=== PATIENT | female | born 1940 | race Caucasian/White ===

== ENCOUNTER 2016-09-18 05:54 | Inpatient (IN) | payer OTHER ==
[2016-09-18] MEDS ORDERED: DEXAMETHASONE SOD PHOSPHATE/PF 10 MG/ML SDV ONE (06:52)
[2016-09-18] MEDS ORDERED: MIDAZOLAM HCL 2 MG/2 ML SINGLE DOSE VIAL ONE ×2 (06:52→12:27)
[2016-09-18] MEDS ORDERED: ROPIVACAINE HCL 0.5% 30ML VIAL ONE (06:52)
[2016-09-18 06:55] VITALS: BMI 36.1
[2016-09-18] MEDS ORDERED: oxyCODONE HCL 10 MG SUSTAINED ACTING TABLET ONE (07:02)
[2016-09-18] MEDS ORDERED: CELECOXIB 200 MG CAPSULE ONE (07:02)
[2016-09-18] MEDS ORDERED: GABAPENTIN 300 MG CAPSULE (FP) ONE (07:02)
[2016-09-18] MEDS: GABAPENTIN 300 MG CAPSULE (FP) PO ONE ×2 (07:05→17:12)
[2016-09-18] MEDS: oxyCODONE HCL 10 MG SUSTAINED ACTING TABLET PO ONE ×2 (07:05→17:11)
[2016-09-18] MEDS: CELECOXIB 200 MG CAPSULE PO ONE ×2 (07:05→17:12)
[2016-09-18] MEDS ORDERED: TRANEXAMIC ACID 1000 MG/10 ML VIAL IVPUSH ONE ×2 (07:11→13:09)
[2016-09-18] MEDS ORDERED: CEFAZOLIN 2 GM in DEXTROSE 5%-WATER - 50 ML IVPB ONE (07:11)
[2016-09-18] MEDS ORDERED: ROPIVICAINE 0.2%/MORPH PF/KETOROLAC - 51ML DISP.SYRINGE IA ONE ×2 (07:11→13:09)
[2016-09-18] MEDS: PANTOPRAZOLE 40 MG TABLET (FP) PO ONE ×2 (07:15→17:12)
--- NOTE | 2016-09-18 07:47 | HP ---
Admitting History and Physical - Admission Chief Complaint: right hip osteoarthritis x years History of Present Illness: 76 year old female presents in regard to her right hip. Longstanding history of right hip osteoarthritis. Patient complains of pain, difficulty ambulating and limited ROM. Patient has failed conservative treatment including PO medication, activity modification and exercise program. At this point, patient would like to proceed with a right direct anterior total hip arthroplasty (MAKOplasty). - Past Medical History FOOD PACKER: Yes: Other (Meningitis age 19) Cardiovascular: Yes: HTN, Hyperlipdemia Pulmonary: Yes: Asthma Gastrointestinal: Yes: Diverticulosis, GERD, GI Bleed, Other (colon polyps, hiatal hernia with GERD) Hepatobiliary: Yes: Choledocholithiasis Renal/: Yes: Renal Calculi ([facility] in 2014) Heme/Onc: Yes: Anemia Musculoskeletal: Yes: Osteoarthritis (hip inhections 2014), Other (right hip steroid injection 2014) ENT: Yes: Allergic Rhinitis Endocrine: Yes: Diabetes Mellitus, Hyperparathyroidism, Hyperthyroidism, Hypothyroidism, Other (Thyroid nodule, Parathyroidectomy 07/13) - Past Surgical History Past Surgical History: Yes: Appendectomy, Cholecystectomy, Colonoscopy, Hysterectomy, Oopherectomy, Upper Endoscopy (Parathyroidectomy 07/13) Additional Past Surgical History: See written H&P - Smoking History Smoking history: Former smoker Have you smoked in the past 12 months: No Aproximately how many cigarettes per day: 0 If you are a former smoker, when did you quit?: 1983 - Alcohol/Substance Use Hx Alcohol Use: Yes Number of Drinks Daily: 0 (holidays only) - Social History ADL: Independent Occupation: retired History of Recent Travel: No Home Medications - Allergies Allergies/Adverse Reactions: Allergies Allergy/AdvReac Type Severity Reaction Status Date / Time No Known Drug Allergies Allergy Verified 08/31/15 17:38 - Home Medications Home Medications: Ambulatory Orders Atorvastatin Ca [Lipitor] 40 mg PO HS 10/24/12 Levothyroxine [Synthroid -] 50 mcg PO DAILY 05/16/13 Losartan Potassium 50 mg PO DAILY 07/07/14 Ascorbate Calcium [Vitamin C] 500 mg PO DAILY 09/14/16 Cholecalciferol (Vitamin D3) [Vitamin D-400] 400 unit PO DAILY 09/14/16 Omeprazole [Prilosec] 40 mg PO DAILY 09/14/16 Family Disease History - Family Disease History Family Disease History: CA: Grandparent (leukemia), Mother (ovarian cancer), Other: Father (lived to 94) Review of Systems - Review of Systems Musculoskeletal: reports: Decreased ROM (Right hip), Joint Pain (Right hip) Physical Examination Vital Signs: Vital Signs Temperature 97.9 F 09/18/16 06:42 Pulse Rate 77 09/18/16 06:42 Respiratory Rate 16 09/18/16 06:42 Blood Pressure 127/73 09/18/16 06:42 O2 Sat by Pulse Oximetry (%) Constitutional: Yes: Well Nourished, No Distress Eyes: Yes: Conjunctiva Clear HENT: Yes: Atraumatic, Normocephalic Neck: Yes: Supple Cardiovascular: Yes: Regular Rate and Rhythm Respiratory: Yes: Regular Gastrointestinal: Yes: Soft ...Rectal Exam: Yes: Deferred Musculoskeletal: Yes: Joint Stiffness (Right hip) Assessment/Plan 76 year old female presenting in regard to her right hip. Patient continues to complain of pain, limited ROM and difficulty ambulating. Patient has failed conservative treatment. Proceed with a right direct anterior total hip arthoplasty.
[2016-09-18] MEDS ORDERED: VANCOMYCIN 1,000 MG VIAL (RESTRICTED TO ID ONLY) ONE (07:49)
[2016-09-18] MEDS ORDERED: ceFAZolin SODIUM 1 GM VIAL ONE ×2 (07:49→09:01)
[2016-09-18] MEDS ORDERED: BUPIVACAINE HCL/PF 0.5% (5MG/ML) 10 ML VIAL ONE (08:09)
[2016-09-18] MEDS ORDERED: PROPOFOL 20 ML ONE ×4 (08:17→10:56)
--- NOTE | 2016-09-18 08:28 | HP ---
Admitting History and Physical - Admission Chief Complaint: right hip OA History of Present Illness: Right hip OA x many years. Has failed treatments with injections, medications, and physical therapy. Indicated for right RENE. History Source: Patient, Medical Record Limitations to Obtaining History: No Limitations - Past Medical History [employer]: Yes: Other (Meningitis age 19) Cardiovascular: Yes: HTN, Hyperlipdemia Pulmonary: Yes: Asthma Gastrointestinal: Yes: Diverticulosis, GERD, GI Bleed, Other (colon polyps, hiatal hernia with GERD) Hepatobiliary: Yes: Choledocholithiasis Renal/: Yes: Renal Calculi ([facility] in 2014) Heme/Onc: Yes: Anemia Musculoskeletal: Yes: Osteoarthritis (hip inhections 2014), Other (right hip steroid injection 2014) ENT: Yes: Allergic Rhinitis Endocrine: Yes: Diabetes Mellitus, Hyperparathyroidism, Hyperthyroidism, Hypothyroidism, Other (Thyroid nodule, Parathyroidectomy 07/13) - Past Surgical History Past Surgical History: Yes: Appendectomy, Cholecystectomy, Colonoscopy, Hysterectomy, Oopherectomy, Upper Endoscopy (Parathyroidectomy 07/13) Additional Past Surgical History: See written H&P - Smoking History Smoking history: Former smoker Have you smoked in the past 12 months: No Aproximately how many cigarettes per day: 0 If you are a former smoker, when did you quit?: 1983 - Alcohol/Substance Use Hx Alcohol Use: Yes Number of Drinks Daily: 0 (holidays only) - Social History ADL: Independent Occupation: retired History of Recent Travel: No Home Medications - Allergies Allergies/Adverse Reactions: Allergies Allergy/AdvReac Type Severity Reaction Status Date / Time No Known Drug Allergies Allergy Verified 08/31/15 17:38 - Home Medications Home Medications: Ambulatory Orders Atorvastatin Ca [Lipitor] 40 mg PO HS 10/24/12 Levothyroxine [Synthroid -] 50 mcg PO DAILY 05/16/13 Losartan Potassium 50 mg PO DAILY 07/07/14 Ascorbate Calcium [Vitamin C] 500 mg PO DAILY 09/14/16 Cholecalciferol (Vitamin D3) [Vitamin D-400] 400 unit PO DAILY 09/14/16 Omeprazole [Prilosec] 40 mg PO DAILY 09/14/16 Family Disease History - Family Disease History Family Disease History: CA: Grandparent (leukemia), Mother (ovarian cancer), Other: Father (lived to ) Physical Examination Vital Signs: Vital Signs Temperature 97.9 F 09/18/16 06:42 Pulse Rate 77 09/18/16 06:42 Respiratory Rate 16 09/18/16 06:42 Blood Pressure 127/73 09/18/16 06:42 O2 Sat by Pulse Oximetry (%) Constitutional: Yes: Well Nourished, No Distress, Calm Eyes: Yes: WNL, Conjunctiva Clear, EOM Intact HENT: Yes: WNL, Atraumatic, Normocephalic Neck: Yes: WNL, Supple Cardiovascular: Yes: WNL, Regular Rate and Rhythm Respiratory: Yes: WNL, Regular Gastrointestinal: Yes: WNL, Soft, Abdomen, Obese ...Rectal Exam: Yes: Deferred Extremities: Yes: WNL, External Rotation Edema: No Peripheral Pulses WNL: Yes Neurological: Yes: WNL, Alert, Oriented ...Motor Strength: WNL Psychiatric: Yes: WNL, Alert, Oriented Labs: Reviewed in chart Imaging - Results X-ray: Image Reviewed Cat Scan: Report Reviewed, Image Reviewed Problem List - Problems (1) Osteoarthritis of right hip Code(s): M16.11 - UNILATERAL PRIMARY OSTEOARTHRITIS, RIGHT HIP Assessment/Plan 76yo female with R hip OA for R RENE
[2016-09-18] MEDS ORDERED: KETAMINE HCL 200 MG/20 ML VIAL ONE (08:51)
[2016-09-18] MEDS ORDERED: TRANEXAMIC ACID 1000 MG/10 ML VIAL ONE ×2 (08:56→13:24)
[2016-09-18] MEDS ORDERED: ONDANSETRON 4 MG/2 ML VIAL ONE (09:01)
[2016-09-18] MEDS ORDERED: DEXAMETHASONE SOD PHOSPHATE 4 MG/1 ML VIAL ONE (09:01)
[2016-09-18] MEDS ORDERED: ePHEDrine SULFATE 50 MG/1 ML AMPULE ONE (09:20)
[2016-09-18] MEDS ORDERED: VANCOMYCIN 1,000 MG VIAL (RESTRICTED TO ID ONLY) IVPB ONE (13:08)
--- NOTE | 2016-09-18 13:54 | OP ---
Operative Note - Note: Operative Date: 09/18/16 Pre-Operative Diagnosis: Right hip osteoarthritis Operation: right total hip replacement Post-Operative Diagnosis: Same as Pre-op Surgeon: Dev Casas Quality Assurance Associate: Anita Ochoa Anesthesia: Spinal Estimated Blood Loss (mls): 400
[2016-09-18] MEDS ORDERED: ONDANSETRON 4 MG/2 ML VIAL IVPB PRN (13:55)
[2016-09-18] MEDS ORDERED: MAGNESIUM HYDROX 2400MG/30ML ORAL SUSPENSION 30 ML CUP PO PRN (13:55)
[2016-09-18] MEDS ORDERED: MAG HYDROX/AL HYDROX/SIMETH 30 ML UNIT-DOSE CUP PO PRN (13:55)
[2016-09-18] MEDS ORDERED: LACTATED RINGERS SOLUTION 1,000 ML IV SCH ×2 (14:00→14:30)
[2016-09-18] MEDS ORDERED: PROMETHAZINE HCL 25 MG/1 ML VIAL IVPUSH PRN (14:22)
[2016-09-18] MEDS ORDERED: ACETAMINOPHEN 1000 MG/100 ML VIAL (NON FORMULARY) IVPB ONE (14:23)
[2016-09-18] MEDS: KETOROLAC TROMETHAMINE 30 MG/1 ML VIAL IVPUSH SCH ×2 (14:27→21:36)
[2016-09-18] MEDS: traMADol HCL 50 MG TABLET PO SCH ×3 (14:30→21:36)
[2016-09-18] MEDS: CEFAZOLIN 2 GM/D5W 50 ML IVPB SCH (17:10)
[2016-09-18] MEDS: FERROUS SO4 325 MG TABLET (FP) PO SCH (17:11)
[2016-09-18] MEDS ORDERED: CEFAZOLIN 2 GM in DEXTROSE 5%-WATER - 50 ML IVPB SCH (18:00)
[2016-09-18] MEDS: GABAPENTIN 300 MG CAPSULE (FP) PO SCH (21:35)
[2016-09-18] MEDS: ASCORBIC ACID 500 MG TABLET (FP) PO SCH (21:35)
[2016-09-18] MEDS: ATORVASTATIN CA 40 MG TABLET (FP) PO SCH (21:35)
[2016-09-18] MEDS: SENNOSIDES/DOCUSATE COMBO (SENNA PLUS) TABLET (UD) PO SCH (21:35)
[2016-09-18] MEDS ORDERED: oxyCODONE HCL 5 MG TABLET ONE (23:36)
[2016-09-18] MEDS ORDERED: oxyCODONE HCL 5 MG TABLET PO PRN (23:57)
[2016-09-19] MEDS: KETOROLAC TROMETHAMINE 30 MG/1 ML VIAL IVPUSH SCH (01:42)
[2016-09-19] MEDS: traMADol HCL 50 MG TABLET PO SCH ×4 (01:42→21:18)
[2016-09-19] MEDS: CEFAZOLIN 2 GM/D5W 50 ML IVPB SCH (01:44)
[2016-09-19] MEDS: LEVOTHYROXINE NA 50 MCG TABLET (FP) PO SCH (07:00)
[2016-09-19] MEDS: FERROUS SO4 325 MG TABLET (FP) PO SCH ×2 (08:00→17:30)
[2016-09-19] MEDS: ASPIRIN 325 MG TABLET PO SCH (08:00)
[2016-09-19] MEDS: ACETAMINOPHEN 325 MG TABLET (FP) PO SCH ×3 (08:15→21:21)
[2016-09-19 08:49] LABS: ANION GAP 13 (8-16); CALCIUM 8.7 mg/dl (8.4-10.2); CO2 22 mmol/L (22-28); CREATININE 2.2 mg/dl (0.6-1.3); GLUCOSE,RANDOM 185 mg/dl (74-106)
[2016-09-19 08:55] LABS: MCH 28.5 pg (25.7-33.7); MCHC 33.5 g/dl (32.0-36.0); MEAN CELL VOLUME 85.2 fl (80-96); MEAN PLT VOLUME 9.8 fl (7.5-11.1); PLATELET COUNT 211 K/MM3 (134-434); RDW 13.3 % (11.6-15.6); WHITE BLOOD COUNT 12.4 K/mm3 (4.0-10.8)
[2016-09-19] MEDS: SENNOSIDES/DOCUSATE COMBO (SENNA PLUS) TABLET (UD) PO SCH ×2 (10:00→21:21)
[2016-09-19] MEDS: MULTIVITAMINS (DAILY MVI) TABLET (FP) PO SCH (10:00)
[2016-09-19] MEDS: GABAPENTIN 300 MG CAPSULE (FP) PO SCH ×2 (10:00→21:20)
[2016-09-19] MEDS: PANTOPRAZOLE 40 MG TABLET (FP) PO SCH (10:00)
[2016-09-19] MEDS: oxyCODONE HCL 10 MG SUSTAINED ACTING TABLET PO SCH (10:00)
[2016-09-19] MEDS: LOSARTAN POTASSIUM 50 MG TABLET (FP) PO SCH ×2 (10:00)
[2016-09-19] MEDS: ASCORBIC ACID 500 MG TABLET (FP) PO SCH ×2 (10:00→21:21)
[2016-09-19] MEDS: SODIUM CHLORIDE 1,000 ML IV SCH (10:00)
[2016-09-19] MEDS ORDERED: CELECOXIB 200 MG CAPSULE PO SCH (10:00)
[2016-09-19] MEDS ORDERED: SODIUM CHLORIDE 500 ML IV STA (15:35)
[2016-09-19 17:22] LABS: MCH 28.5 pg (25.7-33.7); MCHC 33.6 g/dl (32.0-36.0); MEAN CELL VOLUME 84.9 fl (80-96); MEAN PLT VOLUME 9.7 fl (7.5-11.1); PLATELET COUNT 202 K/MM3 (134-434); RDW 13.2 % (11.6-15.6); WHITE BLOOD COUNT 10.5 K/mm3 (4.0-10.8)
[2016-09-19 17:25] LABS: ANION GAP 13 (8-16); CALCIUM 7.9 mg/dl (8.4-10.2); CO2 18 mmol/L (22-28); CREATININE 2.8 mg/dl (0.6-1.3); GLUCOSE,RANDOM 129 mg/dl (74-106)
--- NOTE | 2016-09-19 19:26 | OP ---
DATE OF OPERATION: 09/18/2016 PREOPERATIVE DIAGNOSIS: Right hip osteoarthritis. POSTOPERATIVE DIAGNOSIS: Right hip osteoarthritis. PROCEDURE: Right total hip replacement, to be a direct anterior approach. ATTENDING: Mari Garcia MD GAS APPLIANCE SERVICER: JUAN MANUEL Marc ANESTHESIA: Spinal plus sedation. ESTIMATED BLOOD LOSS: 400 mL. COMPLICATIONS: None. SPECIMENS: Resected bone was sent for pathology analysis. DISPOSITION: The patient was taken to the PACU in stable condition. IMPLANTS USED: Otilia Accolade size 4 femoral component, 48-mm Tritanium acetabular component, MDM bipolar head ball, 2 Dall-Miles cables. INDICATIONS: This is a 76-year-old female who presented to the office with severe right hip pain. She was seen and examined by Dr. Garcia and diagnosed with severe right hip osteoarthritis. She had had this condition for several years and had tried multiple nonoperative treatment including injections, medications, and physical therapy but continued to have severe pain and ambulatory dysfunction. She was subsequently indicated for a right total hip replacement via a direct anterior approach using MAKOplasty robotic navigation. The risks, benefits and alternatives to the procedure were explained to the patient in great detail, and she elected to proceed with the surgery. On the day of surgery, the patient was taken to the operating room and placed on the OR table. Spinal anesthesia was administered by the anesthesiologist. The patient was then positioned supine on the table, and all bony prominences were padded. The right lower extremity was then strapped to the Arch leg ascencio device. It was prepped from the hip to the knee and draped in the usual sterile fashion. The contralateral iliac crest was also prepped and draped in the usual sterile fashion for placement of the MAKOplasty reflector array pins. Intravenous antibiotics were then given for infection prophylaxis. A surgical time-out was performed with the team, and the patient's identity, side, site, availability of implants, procedure, and administration of antibiotics were confirmed. An approximately 10 cm longitudinal incision was then made over the tensor fascia dejan muscle 2 cm posterior and lateral to the anterior superior iliac spine. This was then carried down through the subcutaneous tissue. The fascia over the tensor fascia dejan was then incised, and Hohmann retractors were placed around the femoral neck. Crossing branches of the lateral femoral circumflex artery were identified and then cauterized with the Uppidy bipolar sealing device. An anterior T-shaped capsulotomy was then performed, and the femoral head and neck were visualized. Grade 4 changes were noted diffusely throughout the joint, and there was extensive osteophyte and calcified labrum found at the acetabular rim. Three small stab incisions were then made along the contralateral iliac crest. Three self-drilling Steinmann pins were then placed, and the [employer] pelvic array was attached to the contralateral side of the pelvis. Reference points on the operative limb were then entered into the robotic device, and the limb length discrepancy, offset, and femoral neck resection level were then calculated by the software. Once this was completed, the femoral neck cut was made at the level previously templated, and the femoral head was removed. Retractors were then placed around the acetabulum, and the remaining parts of the labrum were removed. It was noticed that there was some calcification of the labrum and periarticular osteophytes present. An acetabular checkpoint pin was then placed, and we used the [employer] software to register the contours of the acetabulum in the usual fashion. The acetabulum was then reamed to the preoperatively templated size using the Sravan robotic arm to a preoperatively determined orientation of 40 degrees of inclination and 20 degrees of anteversion. The Sravan arm was then used to impact the final 48-mm acetabular component in place at the same orientation. This was found to have very good initial fixation, and an MDM liner was then placed in the cup. Attention was then turned back to the femur. The right leg was extended, adducted, and externally rotated so that the posterior capsule could be released. A box osteotome was used to remove bone from the lateral femoral neck. A rattail rasp was used as a canal finder, and the femur was broached sequentially until a solid press-fit was achieved. During this process, it was noted that there was a small perforation of the posteromedial cortex of the femur after the initial broach was used; however, this was less than a centimeter in diameter and this was not in an area that would be in contact with the final press-fit stem. Once broaching was completed, the final broach had a solid press-fit, and the final stem size 4 corresponded to the preoperatively templated size. Once this was completed, a trial head and neck was placed and the hip was reduced. From here, several different offset head and neck configurations were tested until excellent stability and leg length was obtained. The [employer] robotic device and software was used to quantify these measurements throughout the entire process. All trial components were then removed. The femur was copiously irrigated with pulse lavage, and the final components were placed. Leg length and stability were checked again and found to be excellent. We elected to place 2 Dall-Miles cables, 1 proximal and 1 distal, to the femoral cortex perforation to protect the femur from possible postoperative fractures; however, this again was not an area that was in contact with the stem, and the final stem completely bypassed this area with distal fixation. The wound was then thoroughly irrigated with normal saline. A 3-minute dilute Betadine lavage was performed according to the [facility] protocol. The wound was then thoroughly irrigated with normal saline, as were the stab incisions on the contralateral iliac crest. Number 1 Vicryl and number 0 V-Loc 180 barbed sutures were used to close the fascia over the tensor fascia dejan. Then 2-0 Vicryl sutures were used in the subcutaneous tissues. The skin was closed using both 3-0 V-Loc 90 suture, in a running subcuticular fashion, and Dermabond skin adhesive. The contralateral iliac crest incision was also closed with number 1 and 2-0 Vicryl sutures, with the skin closed with 3-0 V-Loc 90 and Dermabond skin adhesive. Once this was completed, sterile Aquacel dressings were applied to both sites. The patient was then awakened and taken to the PACU in stable condition. MARI GARCIA M.D. [id number]
[2016-09-19] MEDS ORDERED: SODIUM CHLORIDE 1,000 ML IV SCH (19:45)
--- NOTE | 2016-09-19 19:51 | PN ---
Progress Note (short form) - Note Progress Note: Pt seen and examined. Comfortable. Was not able to due much PT today because of dizziness when standing. Also had 2 episodes of soft stools / diarrhea. Pt states she had similar reaction to PO abx at home before. Afebrile Selected Entries 09/19/16 17:42 Temperature 97.5 F L Pulse Rate 88 Respiratory 18 Rate Blood Pressure 84/63 O2 Sat by Pulse 100 Oximetry (%) Oxygen Delivery Room Air Method Laboratory Tests 09/19/16 09/19/16 09/19/16 07:54 07:54 17:00 WBC 12.4 H 10.5 Hgb 9.1 L 8.3 L Hct 27.3 L 24.7 L Plt Count 211 202 Sodium 140 Potassium 5.6 H Chloride 105 Carbon Dioxide 22 Anion Gap 13 BUN 47 H Creatinine 2.2 H Random Glucose 185 H Calcium 8.7 09/19/16 17:00 WBC Hgb Hct Plt Count Sodium 131 L Potassium 4.5 Chloride 100 Carbon Dioxide 18 L Anion Gap 13 BUN 55 H Creatinine 2.8 H D Random Glucose 129 H D Calcium 7.9 L Gen: NAD RLE: c/d/i, NVID, thigh soft and compressible, 5/5 GS/TA/EHL/FHL SILT L2-S1, toes warm A/P 76yo female POD#1 s/p R RENE 1. Preop H/H was 13.5/41.6. Now 8.3/24.7. Pt has dizziness when standing, creatinine increased from normal preop to 2.8. Pt was bolused 500mL and has been on NS 125 mL/hr all day. Will transfuse 2U PRBC for acute postoperative blood loss anemia and to ensure adequate renal perfusion. 2. Continue NS @ 125mL/hr overnight after transfusion. 3. Celebrex dc'ed 4. Hospitalist consult tonight for medical evaluation. Will notify Dr. Thompson in AM. 5. Hold d/c until for creatinine to improve and pt to ambulate more. Problem List - Problems (1) Osteoarthritis of right hip Code(s): M16.11 - UNILATERAL PRIMARY OSTEOARTHRITIS, RIGHT HIP
[2016-09-19] MEDS: ATORVASTATIN CA 40 MG TABLET (FP) PO SCH (21:18)
--- NOTE | 2016-09-19 21:40 | CONSULT ---
Consultation: REQUESTING PROVIDER: Augusto CONSULT REQUEST: We have been asked to medically evaluate this patient for dizziness, hypotension and anemia. HISTORY OF PRESENT ILLNESS: This is a 76 year old female with a past medical history of R hip OA who underwent R hip arthroplasty on 09/18/16. Today pt was noted with low BP and dizziness and as such a consult was initiated. Pt was noted with Hgb drop from 13.5 preop on 09/01/16 to 9.1 this morning POD 1. Repeat Hgb at 5pm 8.3. Upon exam pt reports feeling a little better after receiving IVF but mild dizziness persists. Reports no pain in hip unless moving joint and then pain is severe. Past Medical History OA R hip HTN HLD borderline DM-diet controlled Asthma ?- pt denies same but documented in history, has used inhaler in past diverticulosis Hiatal hernia with GERD GI bleed colon polyps choledocholithiasis s/p cholecystectomy renal calculi s/p lithotripsy anemia hyperparathyroidism hypothyroidism Past Surgical History Appendectomy Cholecystectomy Hysterectomy/Oopherectomy Parathyroidectomy 07/13 B/L carpal tunnel syndrome Social History previous smoker, quit 40 years ago denies drug use, rare ETOH REVIEW OF SYSTEMS: CONSTITUTIONAL: Absent: fever, chills, diaphoresis, generalized weakness, malaise, loss of appetite, weight change HEENT: Absent: rhinorrhea, nasal congestion, throat pain, throat swelling, difficulty swallowing, mouth swelling, ear pain, eye pain, visual changes CARDIOVASCULAR: Absent: chest pain, syncope, palpitations, irregular heart rate, lightheadedness , peripheral edema RESPIRATORY: Absent: cough, shortness of breath, dyspnea with exertion, orthopnea, wheezing, stridor, hemoptysis GASTROINTESTINAL: Absent: abdominal pain, abdominal distension, nausea, vomiting, diarrhea, constipation, melena, hematochezia GENITOURINARY: Absent: dysuria, frequency, urgency, hesitancy, hematuria, flank pain, genital pain MUSCULOSKELETAL: Present: Hip pain Absent: myalgia, arthralgia, joint swelling, back pain, neck pain SKIN: Absent: rash, itching, pallor HEMATOLOGIC/IMMUNOLOGIC: Absent: easy bleeding, easy bruising, lymphadenopathy, frequent infections ENDOCRINE: Absent: unexplained weight gain, unexplained weight loss, heat intolerance, cold intolerance NEUROLOGIC: Present: dizziness Absent: headache, focal weakness or paresthesias, unsteady gait, seizure, mental status changes, bladder or bowel incontinence PSYCHIATRIC: Absent: anxiety, depression, suicidal or homicidal ideation, hallucinations. Current Medications 3 Generic Name Dose Route Start Last Admin Trade Name Freq PRN Reason Stop Dose Admin Acetaminophen 650 mg 09/19/16 08:15 09/19/16 21:21 Tylenol - PO 09/22/16 08:04 650 mg Q6H LUIZ Administration Al Hydroxide/Mg Hydroxide 30 ml 09/18/16 13:55 Mylanta Oral Suspension - PO Q4H PRN DYSPEPSIA Ascorbic Acid 500 mg 09/18/16 22:00 09/19/16 21:21 Vitamin C - PO 500 mg BID LUIZ Administration Aspirin 325 mg 09/19/16 08:00 09/19/16 08:00 Asa - PO 325 mg DAILY@0800 LUIZ Administration Atorvastatin Calcium 40 mg 09/18/16 22:00 09/19/16 21:18 Lipitor - PO 40 mg HS LUIZ Administration Fentanyl 50 mcg 09/18/16 14:22 09/18/16 14:35 Sublimaze Injection - IVPUSH 09/21/16 14:23 50 mcg [id number] PRN Administration PAIN Ferrous Sulfate 325 mg 09/18/16 17:30 09/19/16 17:30 Feosol - PO 325 mg BIDWM LUIZ Administration Gabapentin 300 mg 09/18/16 22:00 09/19/16 21:20 Neurontin - PO 09/21/16 21:59 300 mg BID LUIZ Administration Sodium Chloride 1,000 mls @ 125 mls/hr 09/19/16 09:30 09/19/16 10:00 Normal Saline - IV 125 mls/hr ASDIR LUIZ Administration Levothyroxine Sodium 50 mcg 09/19/16 07:00 Synthroid - PO DAILY@0700 [facility] Magnesium Hydroxide 30 ml 09/18/16 13:55 Milk Of Magnesia - PO PRN PRN CONSTIPATION Multivitamins/Minerals/Vitamin C 1 tab 09/19/16 10:00 09/19/16 10:00 Tab-A-Vit - PO 1 tab DAILY LUIZ Administration Ondansetron HCl 4 mg 09/18/16 13:55 Zofran Injection IVPB Q6H PRN NAUSEA Oxycodone HCl 10 mg 09/18/16 23:57 Roxicodone - PO Q4H PRN Oxycodone HCl 5 mg 09/18/16 23:57 09/19/16 00:08 Roxicodone - PO 5 mg Q4H PRN Administration Oxycodone HCl 10 mg 09/19/16 10:00 09/19/16 10:00 Oxycontin - PO 10 mg BID LUIZ Administration Pantoprazole Sodium 40 mg 09/19/16 10:00 09/19/16 10:00 Protonix - PO 40 mg DAILY LUIZ Administration Senna/Docusate Sodium 2 tablet 09/18/16 22:00 09/19/16 21:21 Pericolace - PO Not Given BID LUIZ Tramadol HCl 50 mg 09/18/16 14:30 09/19/16 21:18 Ultram - PO 50 mg Q6H LUIZ Administration PHYSICAL EXAMINATION Vital Signs - 24 hr 3 09/18/16 09/19/16 09/19/16 22:44 06:00 09:00 Temperature 97.6 F 97.6 F Pulse Rate 68 71 Respiratory 18 19 19 Rate Blood Pressure 103/57 93/55 O2 Sat by Pulse 100 93 L 93 L Oximetry (%) 3 09/19/16 09/19/16 09/19/16 09/19/16 10:00 14:59 17:42 20:14 Temperature 97.4 F L 97.5 F L 97.5 F L Pulse Rate 74 80 88 93 H Respiratory 19 18 18 18 Rate Blood Pressure 95/56 72/40 84/63 100/60 O2 Sat by Pulse 99 100 96 Oximetry (%) GENERAL: Awake, alert, and fully oriented, in no acute distress. HEAD: Normal with no signs of trauma. EYES: Pupils equal, round and reactive to light, extraocular movements intact, sclera anicteric, conjunctiva clear. No lid lag. EARS, NOSE, THROAT: Ears normal, nares patent, oropharynx clear without exudates. Moist mucous membranes. NECK: Normal range of motion, supple without lymphadenopathy, JVD, or masses. LUNGS: Breath sounds equal, clear to auscultation bilaterally. No wheezes, and no crackles. No accessory muscle use. HEART: Regular rate and rhythm, normal S1 and S2 without murmur, rub or gallop. ABDOMEN: Soft, nontender, not distended, normoactive bowel sounds, no guarding, no rebound, no masses. No hepatomegaly or splenomegaly. MUSCULOSKELETAL: No bony deformities or tenderness. No CVA tenderness. limited ROM right hip due to pain, aquacell in place, no drainage noted under dressing UPPER EXTREMITIES: 2+ pulses, warm, well-perfused. No cyanosis. No clubbing. Cap refill <2 seconds. No peripheral edema. LOWER EXTREMITIES: 2+ pulses, warm, well-perfused. No calf tenderness. No peripheral edema. NEUROLOGICAL: Cranial nerves II-XII intact. Normal speech. Normal gait. PSYCHIATRIC: Cooperative. Good eye contact. Appropriate mood and affect. SKIN: Warm, dry, normal turgor, no rashes or lesions noted. Laboratory Results - last 24 hr 3 09/19/16 09/19/16 09/19/16 07:54 07:54 17:00 WBC 12.4 H 10.5 RBC 3.20 L 2.91 L Hgb 9.1 L 8.3 L Hct 27.3 L 24.7 L MCV 85.2 84.9 MCHC 33.5 33.6 RDW 13.3 13.2 Plt Count 211 202 MPV 9.8 9.7 Sodium 140 Potassium 5.6 H Chloride 105 Carbon Dioxide 22 Anion Gap 13 BUN 47 H Creatinine 2.2 H Random Glucose 185 H Calcium 8.7 Crossmatch 3 09/19/16 09/19/16 17:00 20:00 WBC RBC Hgb Hct MCV MCHC RDW Plt Count MPV Sodium 131 L Potassium 4.5 Chloride 100 Carbon Dioxide 18 L Anion Gap 13 BUN 55 H Creatinine 2.8 H D Random Glucose 129 H D Calcium 7.9 L Crossmatch See Detail ASSESSMENT/PLAN: 76yF with PMH OA R hip, HTN, HLD, asthma, diverticulosis, GI bleed, hiatal hernia, GERD, anemia, renal calculi, hyperparathyroidism, hypothyroidism presented for R hip arthroplasty. She developed anemia and hypotension postoperatively. Hypotension with dizziness - hold cozaar - cont IVF 125mL/hr as ordered - PRBC as ordered Anemia - significant drop in H/H postop - will give 1uPRBC, repeat H/H 2h post and assess need for second unit - iron BID as ordered hyponatremia - dc lactated ringers, cont NS as ordered, repeat in am. IDRIS - cr 2.2&2.8 today up from 0.9 on preop labs - likely related to hypovolemia/acute blood loss - cont IVF and PRBC - repeat labs in am, if not improving, renal consult. R hip arthroplasty - POD#1 - treatment as above - cont gabapentin and celebrex standing for pain with oxycodone PRN Loose BM - hold pericolace today and tomorrow am, explained to pt that given Iron therapy and opioid analgesia will likely develop constipation. Advised to inform staff if ANY signs or symptoms of same. borderline DM - Pt reports highest A1c 6.3 - will add BGM BID with novolog sliding scale. - diabetic diet - change supplement to glucerna HLD - cont home lipitor GERD - home omeprazole changed to formulary pantoprazole, cont same DVT PPX - chemoprophylaxis on hold due to low H/H start when H/H stable FEN - NS @ 125cc/hr - repeat BMP in am - diabetic diet Dispo: We will continue to follow the patient. Thank you for this consultative opportunity. Visit type - Emergency Visit Emergency Visit: No - New Patient This patient is new to me today: Yes Date on this admission: 09/19/16 - Critical Care Critical Care patient: No
[2016-09-20] MEDS: ACETAMINOPHEN 325 MG TABLET (FP) PO SCH ×4 (02:19→20:21)
[2016-09-20] MEDS: traMADol HCL 50 MG TABLET PO SCH ×4 (02:20→20:20)
[2016-09-20] MEDS: oxyCODONE HCL 10 MG SUSTAINED ACTING TABLET PO SCH ×3 (04:56→21:02)
[2016-09-20] MEDS: LEVOTHYROXINE NA 50 MCG TABLET (FP) PO SCH (06:20)
[2016-09-20 07:55] LABS: MCH 28.7 pg (25.7-33.7); MCHC 33.4 g/dl (32.0-36.0); MEAN CELL VOLUME 85.7 fl (80-96); MEAN PLT VOLUME 9.8 fl (7.5-11.1); PLATELET COUNT 166 K/MM3 (134-434); RDW 13.2 % (11.6-15.6); WHITE BLOOD COUNT 11.8 K/mm3 (4.0-10.8)
[2016-09-20] MEDS: FERROUS SO4 325 MG TABLET (FP) PO SCH ×2 (08:00→17:32)
[2016-09-20] MEDS: ASPIRIN 325 MG TABLET PO SCH (08:00)
[2016-09-20 08:13] LABS: ANION GAP 10 (8-16); CALCIUM 7.4 mg/dl (8.4-10.2); CO2 18 mmol/L (22-28); CREATININE 2.6 mg/dl (0.6-1.3); GLUCOSE,RANDOM 98 mg/dl (74-106)
[2016-09-20] MEDS: SODIUM CHLORIDE 1,000 ML IV SCH (09:30)
[2016-09-20] MEDS ORDERED: ACETAMINOPHEN 1000 MG/100 ML VIAL (NON FORMULARY) IVPB ONE (10:00)
[2016-09-20] MEDS: PANTOPRAZOLE 40 MG TABLET (FP) PO SCH (10:13)
[2016-09-20] MEDS: ASCORBIC ACID 500 MG TABLET (FP) PO SCH ×2 (10:13→21:02)
[2016-09-20] MEDS: MULTIVITAMINS (DAILY MVI) TABLET (FP) PO SCH (10:13)
[2016-09-20] MEDS: GABAPENTIN 300 MG CAPSULE (FP) PO SCH ×2 (10:13→21:02)
--- NOTE | 2016-09-20 10:58 | PN ---
Physical Exam: SUBJECTIVE: Patient seen and examined, patient reports dizziness and throbbing pain to the left hip. patient received 1 unit of PRBC OBJECTIVE: patient is a 76 y/o female with a past medical history of OA, HTN, HLD, asthma, NIDDM (diet controlled), GERD, renal calculi, anemia, hypothyroidism, hyperparathyroidism. Patient is s/p right THR post op day 1 ( Augusto). Patient was hypotensive with symptomatic anemia on post op. Vital Signs Period Temp Pulse Resp BP Sys/Oliva Pulse Ox Last 24 Hr 97.4 F-98.6 F 80-94 18-20 72-101/40-63 95-100 GENERAL: The patient is awake, alert, and fully oriented, in no acute distress. HEAD: Normal with no signs of trauma. EYES: PERRL, extraocular movements intact, sclera anicteric, conjunctiva clear. No ptosis. ENT: Ears normal, nares patent, oropharynx clear without exudates, moist mucous membranes. NECK: Trachea midline, full range of motion, supple. LUNGS: Breath sounds equal, clear to auscultation bilaterally, no wheezes, no crackles, no accessory muscle use. HEART: Regular rate and rhythm, S1, S2 without murmur, rub or gallop. ABDOMEN: Soft, nontender, nondistended, normoactive bowel sounds, no guarding, no rebound, no hepatosplenomegaly, no masses. EXTREMITIES: 2+ pulses, warm, well-perfused, no edema. RIGHT LOWER EXTREMITY: dressing CDI, less than 3 second capillary refill, +3 pedal pulse NEUROLOGICAL: Cranial nerves II through XII grossly intact. Normal speech, gait not observed. PSYCH: Normal mood, normal affect. SKIN: Warm, dry, normal turgor, no rashes or lesions noted Laboratory Results - last 24 hr 09/19/16 09/19/16 09/19/16 17:00 17:00 20:00 WBC 10.5 RBC 2.91 L Hgb 8.3 L Hct 24.7 L MCV 84.9 MCHC 33.6 RDW 13.2 Plt Count 202 MPV 9.7 Sodium 131 L Potassium 4.5 Chloride 100 Carbon Dioxide 18 L Anion Gap 13 BUN 55 H Creatinine 2.8 H D POC Glucometer Random Glucose 129 H D Calcium 7.9 L Blood Type A POSITIVE Antibody Screen Negative Crossmatch See Detail 09/20/16 09/20/16 09/20/16 06:00 06:00 06:28 WBC 11.8 H RBC 3.05 L Hgb 8.7 L Hct 26.1 L MCV 85.7 MCHC 33.4 RDW 13.2 Plt Count 166 MPV 9.8 Sodium 127 L Potassium 4.6 Chloride 99 Carbon Dioxide 18 L Anion Gap 10 BUN 66 H Creatinine 2.6 H POC Glucometer 117 Random Glucose 98 D Calcium 7.4 L Blood Type Antibody Screen Crossmatch Active Medications Generic Name Dose Route Start Last Admin Trade Name Freq PRN Reason Stop Dose Admin Acetaminophen 650 mg 09/19/16 08:15 09/20/16 08:15 Tylenol - PO 09/22/16 08:04 650 mg Q6H LUIZ Administration Al Hydroxide/Mg Hydroxide 30 ml 09/18/16 13:55 Mylanta Oral Suspension - PO Q4H PRN DYSPEPSIA Ascorbic Acid 500 mg 09/18/16 22:00 09/20/16 10:13 Vitamin C - PO 500 mg BID LUIZ Administration Aspirin 325 mg 09/19/16 08:00 09/20/16 08:00 Asa - PO 325 mg DAILY@0800 LUIZ Administration Atorvastatin Calcium 40 mg 09/18/16 22:00 09/19/16 21:18 Lipitor - PO 40 mg HS LUIZ Administration Fentanyl 50 mcg 09/18/16 14:22 09/18/16 14:35 Sublimaze Injection - IVPUSH 09/21/16 14:23 50 mcg [id number] PRN Administration PAIN Ferrous Sulfate 325 mg 09/18/16 17:30 09/20/16 08:00 Feosol - PO 325 mg BIDWM LUIZ Administration Gabapentin 300 mg 09/18/16 22:00 09/20/16 10:13 Neurontin - PO 09/21/16 21:59 300 mg BID LUIZ Administration Sodium Chloride 1,000 mls @ 125 mls/hr 09/19/16 09:30 09/19/16 10:00 Normal Saline - IV 125 mls/hr ASDIR LUIZ Administration Levothyroxine Sodium 50 mcg 09/19/16 07:00 09/20/16 06:20 Synthroid - PO 50 mcg DAILY@0700 LUIZ Administration Magnesium Hydroxide 30 ml 09/18/16 13:55 Milk Of Magnesia - PO PRN PRN CONSTIPATION Multivitamins/Minerals/Vitamin C 1 tab 09/19/16 10:00 09/20/16 10:13 Tab-A-Vit - PO 1 tab DAILY LUIZ Administration Ondansetron HCl 4 mg 09/18/16 13:55 Zofran Injection IVPB Q6H PRN NAUSEA Oxycodone HCl 10 mg 09/18/16 23:57 Roxicodone - PO Q4H PRN Oxycodone HCl 5 mg 09/18/16 23:57 09/19/16 00:08 Roxicodone - PO 5 mg Q4H PRN Administration Oxycodone HCl 10 mg 09/19/16 10:00 09/20/16 10:13 Oxycontin - PO 10 mg BID LUIZ Administration Pantoprazole Sodium 40 mg 09/19/16 10:00 09/20/16 10:13 Protonix - PO 40 mg DAILY LUIZ Administration Senna/Docusate Sodium 2 tablet 09/18/16 22:00 09/19/16 21:21 Pericolace - PO Not Given BID LUIZ Tramadol HCl 50 mg 09/18/16 14:30 09/20/16 08:30 Ultram - PO 50 mg Q6H LUIZ Administration ASSESSMENT/PLAN: 1) card hypotension - continue to hold cozaar - vital signs q4h - continue IVF 2) ortho: s/p right THR, 09/19 - PT as per orthopedist - continue prn pain medication, caution with narcotic pain medication due to hypotension, advise holding standing dose of oxycontin 3) hem normocytic anemia - baseline hgb 13.1, repeat 8.7 after 1 unit of PRBC - continue iron BID 4) nephrology IDRIS - prerenal secondary to hypovolemia - repeat creatine 2.6 baseline 0.9 - continue IVF, advise repeat bmp at 1800 5) endo NIDDM - continue fingersticks achs with novolog sliding scale 6) GI GERD - continue protonix (substitute for omeprazole) DVT PPX - chemoprophylaxis on hold due to low H/H start when H/H stable FEN - NS @ 125cc/hr - repeat BMP at 1800 - diabetic diet Dispo: We will continue to follow the patient. Thank you for this consultative opportunity. Visit type - Emergency Visit Emergency Visit: Yes ED Registration Date: 09/18/16 Care time: The patient presented to the Emergency Department on the above date and was hospitalized for further evaluation of their emergent condition. - New Patient This patient is new to me today: Yes Date on this admission: 09/20/16 - Critical Care Critical Care patient: No - Discharge Referral Referred to [facility] Med P.C.: No
--- NOTE | 2016-09-20 13:32 | PATH ---
Surgical Pathology Report Patient Name: PAULETTE TORRES Med. Rec. #: [id number] /Age/Gender: 1940 (Age: 76) / F Account: [id number] Location: [facility] Taken: 09/18/2016 Received: 09/18/2016 Reported: 09/20/2016 Physicians: Dev Casas M.D. Specimen(s) Received RIGHT FEMORAL HEAD Clinical History Right hip osteoarthritis Final Diagnosis BONE, RIGHT FEMORAL HEAD, REPLACEMENT: DEGENERATIVE JOINT DISEASE. Electronically Signed Luciano Mcclelland M.D. Gross Description Received in formalin, labeled "right femoral head," is a 4.0 x 4.2 x 3.8 cm. femoral head with 1.7 cm in length portion of femoral left attached. The margin of resection is smooth. No areas of eburnation are identified. The articular surface is vergara-yellow and diffusely nodular and granular. The underlying trabecular bone is yellow and hard. A client account representative section is submitted in one cassette, following decalcification. 09/19/2016 [facility]09/19/2016
[2016-09-20] MEDS: oxyCODONE HCL 5 MG TABLET PO PRN (17:30)
[2016-09-20 18:49] LABS: EOSINOPHIL 0.5 % (0-4.5); MCH 29.4 pg (25.7-33.7); MCHC 34.8 g/dl (32.0-36.0); MEAN CELL VOLUME 84.3 fl (80-96); MEAN PLT VOLUME 9.5 fl (7.5-11.1); NEUTROPHILS 79.3 % (42.8-82.8); PLATELET COUNT 184 K/MM3 (134-434); RDW 13.2 % (11.6-15.6); WHITE BLOOD COUNT 11.2 K/mm3 (4.0-10.8)
[2016-09-20 19:02] LABS: ANION GAP 10 (8-16); CALCIUM 7.5 mg/dl (8.4-10.2); CO2 17 mmol/L (22-28); CREATININE 2.1 mg/dl (0.6-1.3); GLUCOSE,RANDOM 153 mg/dl (74-106)
[2016-09-20] MEDS: ATORVASTATIN CA 40 MG TABLET (FP) PO SCH (21:02)
--- NOTE | 2016-09-20 21:28 | PN ---
Progress Note (short form) - Note Progress Note: Pt seen and examined. Comfortable. Dizziness improved but still present. Was able to do more PT today. Afebrile Selected Entries 09/20/16 09/20/16 09/20/16 06:00 18:25 20:37 Temperature 98.2 F Pulse Rate 72 Respiratory 20 Rate Blood Pressure 107/61 O2 Sat by Pulse 95 Oximetry (%) Laboratory Tests 09/20/16 09/20/16 09/20/16 06:00 06:00 18:20 WBC 11.8 H 11.2 H Hgb 8.7 L 8.1 L Hct 26.1 L 23.4 L Plt Count 166 184 Sodium 127 L Potassium 4.6 Chloride 99 Carbon Dioxide 18 L Anion Gap 10 BUN 66 H Creatinine 2.6 H Random Glucose 98 D Calcium 7.4 L 09/20/16 18:20 WBC Hgb Hct Plt Count Sodium 128 L Potassium 4.3 Chloride 101 Carbon Dioxide 17 L Anion Gap 10 BUN 66 H Creatinine 2.1 H Random Glucose 153 H D Calcium 7.5 L Gen: NAD RLE: c/d/i, NVID, thigh swollen but soft and compressible, 5/5 GS/TA/EHL/FHL SILT L2-S1, toes warm A/P 76yo female POD#2 s/p R RENE 1. Pt improved but still has dizziness when standing. Transfuse 1 more unit PRBCs. 2. Continue NS @ 125mL/hr overnight after transfusion. Decrease PO plain water intake - pt has been drinking a lot of water and this is decreasing her appetite and making her hyponatremic. 3. Nutritional supplement shakes TID until she starts eating more. 4. PT/OOB - WBAT RLE 5. Hold d/c until Sunday for creatinine to improve and pt to ambulate more. 6. D/C planning to SNF/Rehab Problem List - Problems (1) Osteoarthritis of right hip Code(s): M16.11 - UNILATERAL PRIMARY OSTEOARTHRITIS, RIGHT HIP
[2016-09-20] MEDS: SENNOSIDES/DOCUSATE COMBO (SENNA PLUS) TABLET (UD) PO SCH (22:00)
[2016-09-21] MEDS: traMADol HCL 50 MG TABLET PO SCH ×4 (02:42→21:05)
[2016-09-21] MEDS: ACETAMINOPHEN 325 MG TABLET (FP) PO SCH ×4 (02:43→21:05)
[2016-09-21] MEDS: LEVOTHYROXINE NA 50 MCG TABLET (FP) PO SCH (06:19)
[2016-09-21] MEDS: KETOROLAC TROMETHAMINE 30 MG/1 ML VIAL IVPUSH SCH (07:28)
[2016-09-21] MEDS: ASPIRIN 325 MG TABLET PO SCH (08:08)
[2016-09-21] MEDS: FERROUS SO4 325 MG TABLET (FP) PO SCH ×2 (08:09→16:38)
[2016-09-21 08:44] LABS: ANION GAP 10 (8-16); CALCIUM 7.8 mg/dl (8.4-10.2); CO2 20 mmol/L (22-28); CREATININE 1.7 mg/dl (0.6-1.3); GLUCOSE,RANDOM 152 mg/dl (74-106); MCH 29.7 pg (25.7-33.7); MCHC 34.7 g/dl (32.0-36.0); MEAN CELL VOLUME 85.6 fl (80-96); MEAN PLT VOLUME 9.6 fl (7.5-11.1); PLATELET COUNT 171 K/MM3 (134-434); RDW 13.4 % (11.6-15.6)
[2016-09-21] MEDS: GABAPENTIN 300 MG CAPSULE (FP) PO SCH (09:08)
[2016-09-21] MEDS: SENNOSIDES/DOCUSATE COMBO (SENNA PLUS) TABLET (UD) PO SCH ×2 (09:08→22:02)
[2016-09-21] MEDS: PANTOPRAZOLE 40 MG TABLET (FP) PO SCH (09:08)
[2016-09-21] MEDS: ASCORBIC ACID 500 MG TABLET (FP) PO SCH ×2 (09:08→21:08)
[2016-09-21] MEDS: MULTIVITAMINS (DAILY MVI) TABLET (FP) PO SCH (09:08)
[2016-09-21] MEDS: SODIUM CHLORIDE 1,000 ML IV SCH (09:09)
[2016-09-21] MEDS: oxyCODONE HCL 10 MG SUSTAINED ACTING TABLET PO SCH ×2 (09:09→21:07)
[2016-09-21 10:39] LABS: MAGNESIUM 1.9 mg/dL (1.8-2.4); PHOSPHOROUS 3.4 mg/dl (2.5-4.6)
--- NOTE | 2016-09-21 11:03 | PN ---
Physical Exam: SUBJECTIVE: Patient seen and examined, reports feeling better,ambulating in hallway with a walker, denies any chest pain or shortness of breath, does reports slight dizziness upon ambulation. OBJECTIVE: patient is a 76 y/o female with a past medical history of OA, HTN, HLD, asthma , NIDDM (diet controlled), GERD, renal calculi, anemia, hypothyroidism, hyperparathyroidism. Patient is s/p right THR post op day 1 (Augusto). Patient was hypotensive with symptomatic anemia on post op. Vital Signs Period Temp Pulse Resp BP Sys/Oliva Pulse Ox Last 24 Hr 97.8 F-98.3 F 71-86 18-20 102-128/51-61 95-99 PHYSICAL EXAMINATION GENERAL: The patient is awake, alert, and fully oriented, in no acute distress. HEAD: Normal with no signs of trauma. EYES: PERRL, extraocular movements intact, sclera anicteric, conjunctiva clear. No ptosis. ENT: Ears normal, nares patent, oropharynx clear without exudates, moist mucous membranes. NECK: Trachea midline, full range of motion, supple. LUNGS: Breath sounds equal, clear to auscultation bilaterally, no wheezes, no crackles, no accessory muscle use. HEART: Regular rate and rhythm, S1, S2 without murmur, rub or gallop. ABDOMEN: Soft, nontender, nondistended, normoactive bowel sounds, no guarding, no rebound, no hepatosplenomegaly, no masses. EXTREMITIES: 2+ pulses, warm, well-perfused, no edema. RIGHT LOWER EXTREMITY: dressing CDI, less than 3 second capillary refill, +3 pedal pulse NEUROLOGICAL: Cranial nerves II through XII grossly intact. Normal speech, gait not observed. PSYCH: Normal mood, normal affect. SKIN: Warm, dry, normal turgor, no rashes or lesions noted Laboratory Results - last 24 hr 09/19/16 09/20/16 09/20/16 20:00 18:20 18:20 WBC 11.2 H RBC 2.78 L Hgb 8.1 L Hct 23.4 L MCV 84.3 MCHC 34.8 RDW 13.2 Plt Count 184 MPV 9.5 Neutrophils % 79.3 Lymphocytes % 11.7 Monocytes % 8.5 Eosinophils % 0.5 Basophils % 0.0 Sodium 128 L Potassium 4.3 Chloride 101 Carbon Dioxide 17 L Anion Gap 10 BUN 66 H Creatinine 2.1 H Random Glucose 153 H D Calcium 7.5 L Phosphorus Magnesium Blood Type A POSITIVE Antibody Screen Negative Crossmatch See Detail 09/21/16 09/21/16 09/21/16 07:48 07:48 07:48 WBC 10.0 RBC 3.47 L D Hgb 10.3 L D Hct 29.7 L D MCV 85.6 MCHC 34.7 RDW 13.4 Plt Count 171 MPV 9.6 Neutrophils % Lymphocytes % Monocytes % Eosinophils % Basophils % Sodium 133 L Potassium 4.4 Chloride 103 Carbon Dioxide 20 L Anion Gap 10 BUN 63 H Creatinine 1.7 H Random Glucose 152 H Calcium 7.8 L Phosphorus 3.4 Magnesium 1.9 Blood Type Antibody Screen Crossmatch Active Medications Generic Name Dose Route Start Last Admin Trade Name Freq PRN Reason Stop Dose Admin Acetaminophen 650 mg 09/19/16 08:15 09/21/16 08:08 Tylenol - PO 09/22/16 08:04 650 mg Q6H LUIZ Administration Al Hydroxide/Mg Hydroxide 30 ml 09/18/16 13:55 09/21/16 00:05 Mylanta Oral Suspension - PO 30 ml Q4H PRN Administration DYSPEPSIA Ascorbic Acid 500 mg 09/18/16 22:00 09/21/16 09:08 Vitamin C - PO 500 mg BID LUIZ Administration Aspirin 325 mg 09/19/16 08:00 09/21/16 08:08 Asa - PO 325 mg DAILY@0800 LUIZ Administration Atorvastatin Calcium 40 mg 09/18/16 22:00 09/20/16 21:02 Lipitor - PO 40 mg HS LUIZ Administration Fentanyl 50 mcg 09/18/16 14:22 09/18/16 14:35 Sublimaze Injection - IVPUSH 09/21/16 14:23 50 mcg [id number] PRN Administration PAIN Ferrous Sulfate 325 mg 09/18/16 17:30 09/21/16 08:09 Feosol - PO 325 mg BIDWM LUIZ Administration Gabapentin 300 mg 09/18/16 22:00 09/21/16 09:08 Neurontin - PO 09/21/16 21:59 300 mg BID LUIZ Administration Sodium Chloride 1,000 mls @ 125 mls/hr 09/19/16 09:30 09/21/16 09:09 Normal Saline - IV Not Given ASDIR LUIZ Levothyroxine Sodium 50 mcg 09/19/16 07:00 09/21/16 06:19 Synthroid - PO 50 mcg DAILY@0700 LUIZ Administration Magnesium Hydroxide 30 ml 09/18/16 13:55 Milk Of Magnesia - PO PRN PRN CONSTIPATION Multivitamins/Minerals/Vitamin C 1 tab 09/19/16 10:00 09/21/16 09:08 Tab-A-Vit - PO 1 tab DAILY LUIZ Administration Ondansetron HCl 4 mg 09/18/16 13:55 Zofran Injection IVPB Q6H PRN NAUSEA Oxycodone HCl 10 mg 09/18/16 23:57 09/20/16 17:30 Roxicodone - PO 10 mg Q4H PRN Administration Oxycodone HCl 5 mg 09/18/16 23:57 09/19/16 00:08 Roxicodone - PO 5 mg Q4H PRN Administration Oxycodone HCl 10 mg 09/19/16 10:00 09/21/16 09:09 Oxycontin - PO 10 mg BID LUIZ Administration Pantoprazole Sodium 40 mg 09/19/16 10:00 09/21/16 09:08 Protonix - PO 40 mg DAILY LUIZ Administration Senna/Docusate Sodium 2 tablet 09/18/16 22:00 09/21/16 09:08 Pericolace - PO 2 tablet BID LUIZ Administration Tramadol HCl 50 mg 09/18/16 14:30 09/21/16 08:07 Ultram - PO 50 mg Q6H LUIZ Administration ASSESSMENT/PLAN: 1) card hypotension - b/p improved, continue to hold cozaar - vital signs q4h - continue IVF 2) ortho: s/p right THR, 09/19 - PT as per orthopedist - continue prn pain medication, caution with narcotic pain medication due to hypotension, advise holding standing dose of oxycontin 3) hem normocytic anemia - baseline hgb 13.1, repeat 10.1 after 2 unit of PRBC - repeat cbc in AM - continue iron BID 4) nephrology IDRIS - prerenal secondary to hypovolemia - repeat creatine 1.7, downtrending baseline 0.9 - continue IVF, advise repeat bmp at 1800 5) endo NIDDM - continue fingersticks achs with novolog sliding scale 6) GI GERD - continue protonix (substitute for omeprazole) DVT PPX - chemoprophylaxis on hold due to low H/H start when H/H stable FEN - NS @ 125cc/hr, repeat BMP at 1800, then reaccess - diabetic diet Dispo: We will continue to follow the patient. Thank you for this consultative opportunity. Visit type - Emergency Visit Emergency Visit: No - New Patient This patient is new to me today: No - Critical Care Critical Care patient: No - Discharge Referral Referred to [facility] Med P.C.: No
--- NOTE | 2016-09-21 18:09 | PN ---
Progress Note (short form) - Note Progress Note: Pt seen and examined. Comfortable. Dizziness improved but still present. Was able to do more PT today. Afebrile Selected Entries 09/21/16 09/21/16 06:00 14:38 Temperature 98.1 F 98.0 F Pulse Rate 85 Respiratory 19 19 Rate Blood Pressure 105/55 97/75 O2 Sat by Pulse 96 Oximetry (%) Oxygen Delivery Room Air Method Laboratory Tests 09/21/16 09/21/16 09/21/16 07:48 07:48 07:48 WBC 10.0 Hgb 10.3 L D Hct 29.7 L D Plt Count 171 Sodium 133 L Potassium 4.4 Chloride 103 Carbon Dioxide 20 L Anion Gap 10 BUN 63 H Creatinine 1.7 H POC Glucometer Random Glucose 152 H Calcium 7.8 L Phosphorus 3.4 Magnesium 1.9 09/21/16 16:01 WBC Hgb Hct Plt Count Sodium Potassium Chloride Carbon Dioxide Anion Gap BUN Creatinine POC Glucometer 149 Random Glucose Calcium Phosphorus Magnesium Gen: NAD RLE: c/d/i, NVID, thigh swollen but soft and compressible, 5/5 GS/TA/EHL/FHL SILT L2-S1, toes warm A/P 76yo female POD#3 s/p R RENE 1. Pt improved but still has dizziness when standing. Continue NS @ 125cc/hr until tomorrow morning. 2. Nutritional supplement shakes TID until she starts eating more. 3. PT/OOB - WBAT RLE 5. Repeat CBC/BMP in AM - creatinine improved to 1.7. 6. D/C tomorrow to SNF Problem List - Problems (1) Osteoarthritis of right hip Code(s): M16.11 - UNILATERAL PRIMARY OSTEOARTHRITIS, RIGHT HIP
[2016-09-21 18:31] LABS: ANION GAP 9 (8-16); CO2 23 mmol/L (22-28); CREATININE 1.6 mg/dl (0.6-1.3); GLUCOSE,RANDOM 127 mg/dl (74-106)
[2016-09-21] MEDS: ATORVASTATIN CA 40 MG TABLET (FP) PO SCH (21:07)
[2016-09-22] MEDS: ACETAMINOPHEN 325 MG TABLET (FP) PO SCH (03:20)
[2016-09-22] MEDS: traMADol HCL 50 MG TABLET PO SCH ×2 (03:20→08:16)
[2016-09-22] MEDS: oxyCODONE HCL 5 MG TABLET PO PRN (05:11)
[2016-09-22 06:09] VITALS: BP 134/60; PULSE 79; TEMP 98.2
[2016-09-22] MEDS: LEVOTHYROXINE NA 50 MCG TABLET (FP) PO SCH (06:17)
[2016-09-22] MEDS: FERROUS SO4 325 MG TABLET (FP) PO SCH (08:16)
[2016-09-22] MEDS: ASPIRIN 325 MG TABLET PO SCH (08:16)
[2016-09-22 08:17] LABS: ALBUMIN 2.2 g/dl (3.5-5.0); ALK PHOS 105 U/L (32-92); ANION GAP 8 (8-16); BILIRUBIN,TOTAL 0.6 mg/dl (0.2-1.0); CALCIUM 8.1 mg/dl (8.4-10.2); CO2 22 mmol/L (22-28); CREATININE 1.1 mg/dl (0.6-1.3); GLUCOSE,RANDOM 118 mg/dl (74-106); SGOT/AST 52 U/L (10-42); SGPT/ALT 29 U/L (10-40); TOT PROT 4.7 g/dl (6.4-8.3)
[2016-09-22 08:33] LABS: BASOPHIL 0.3 % (0-2.0); EOSINOPHIL 1.7 % (0-4.5); MCH 28.8 pg (25.7-33.7); MCHC 33.6 g/dl (32.0-36.0); MEAN CELL VOLUME 85.8 fl (80-96); MEAN PLT VOLUME 9.1 fl (7.5-11.1); NEUTROPHILS 75.3 % (42.8-82.8); PLATELET COUNT 164 K/MM3 (134-434); RDW 13.3 % (11.6-15.6); WHITE BLOOD COUNT 9.5 K/mm3 (4.0-10.8)
--- NOTE | 2016-09-22 10:00 | PN ---
Physical Exam: SUBJECTIVE: Patient seen and examined, patient reports feeling better, slight dizziness noted upon ambulation, patient is ambulating with a walker, pt denies any chest pain or shortness of breath. OBJECTIVE: patient is a 76 y/o female with a past medical history of OA, HTN, HLD, asthma, NIDDM (diet controlled), GERD, renal calculi, anemia, hypothyroidism, hyperparathyroidism. Patient is s/p right THR post op day 3 ( Augusto). Patient was hypotensive with symptomatic anemia on post op. Vital Signs Period Temp Pulse Resp BP Sys/Oliva Pulse Ox Last 24 Hr 98.0 F-98.3 F 79-88 18-19 97-143/60-75 96-97 GENERAL: The patient is awake, alert, and fully oriented, in no acute distress. HEAD: Normal with no signs of trauma. EYES: PERRL, extraocular movements intact, sclera anicteric, conjunctiva clear. No ptosis. ENT: Ears normal, nares patent, oropharynx clear without exudates, moist mucous membranes. NECK: Trachea midline, full range of motion, supple. LUNGS: Breath sounds equal, clear to auscultation bilaterally, no wheezes, no crackles, no accessory muscle use. HEART: Regular rate and rhythm, S1, S2 without murmur, rub or gallop. ABDOMEN: Soft, nontender, nondistended, normoactive bowel sounds, no guarding, no rebound, no hepatosplenomegaly, no masses. EXTREMITIES: 2+ pulses, warm, well-perfused, no edema. RIGHT LOWER EXTREMITY: dressing CDI, less than 3 second capillary refill, +3 pedal pulse NEUROLOGICAL: Cranial nerves II through XII grossly intact. Normal speech, gait not observed. PSYCH: Normal mood, normal affect. SKIN: Warm, dry, normal turgor, no rashes or lesions noted Laboratory Results - last 24 hr 09/21/16 09/21/16 09/21/16 07:48 16:01 18:00 WBC RBC Hgb Hct MCV MCHC RDW Plt Count MPV Neutrophils % Lymphocytes % Monocytes % Eosinophils % Basophils % Sodium 137 Potassium 4.5 Chloride 105 Carbon Dioxide 23 Anion Gap 9 BUN 57 H Creatinine 1.6 H Creat Clearance w eGFR POC Glucometer 149 Random Glucose 127 H Calcium 8.0 L Phosphorus 3.4 Magnesium 1.9 Total Bilirubin AST ALT Alkaline Phosphatase Total Protein Albumin 09/22/16 09/22/16 09/22/16 07:09 07:36 07:36 WBC 9.5 RBC 3.22 L Hgb 9.3 L Hct 27.6 L MCV 85.8 MCHC 33.6 RDW 13.3 Plt Count 164 MPV 9.1 Neutrophils % 75.3 Lymphocytes % 13.1 Monocytes % 9.6 Eosinophils % 1.7 D Basophils % 0.3 D Sodium 138 Potassium 4.0 Chloride 108 H Carbon Dioxide 22 Anion Gap 8 BUN 41 H D Creatinine 1.1 D Creat Clearance w eGFR 48.29 POC Glucometer 131 Random Glucose 118 H Calcium 8.1 L Phosphorus Magnesium Total Bilirubin 0.6 AST 52 H ALT 29 Alkaline Phosphatase 105 H Total Protein 4.7 L Albumin 2.2 L Active Medications Generic Name Dose Route Start Last Admin Trade Name Freq PRN Reason Stop Dose Admin Al Hydroxide/Mg Hydroxide 30 ml 09/18/16 13:55 09/21/16 00:05 Mylanta Oral Suspension - PO 30 ml Q4H PRN Administration DYSPEPSIA Ascorbic Acid 500 mg 09/18/16 22:00 09/21/16 21:08 Vitamin C - PO 500 mg BID LUIZ Administration Aspirin 325 mg 09/19/16 08:00 09/22/16 08:16 Asa - PO 325 mg DAILY@0800 LUIZ Administration Atorvastatin Calcium 40 mg 09/18/16 22:00 09/21/16 21:07 Lipitor - PO 40 mg HS LUIZ Administration Ferrous Sulfate 325 mg 09/18/16 17:30 09/22/16 08:16 Feosol - PO 325 mg BIDWM LUIZ Administration Sodium Chloride 1,000 mls @ 125 mls/hr 09/19/16 09:30 09/21/16 09:09 Normal Saline - IV Not Given ASDIR LUIZ Levothyroxine Sodium 50 mcg 09/19/16 07:00 09/22/16 06:17 Synthroid - PO 50 mcg DAILY@0700 LUIZ Administration Magnesium Hydroxide 30 ml 09/18/16 13:55 Milk Of Magnesia - PO PRN PRN CONSTIPATION Multivitamins/Minerals/Vitamin C 1 tab 09/19/16 10:00 09/21/16 09:08 Tab-A-Vit - PO 1 tab DAILY LUIZ Administration Ondansetron HCl 4 mg 09/18/16 13:55 Zofran Injection IVPB Q6H PRN NAUSEA Oxycodone HCl 10 mg 09/18/16 23:57 09/22/16 05:11 Roxicodone - PO 10 mg Q4H PRN Administration Oxycodone HCl 5 mg 09/18/16 23:57 09/19/16 00:08 Roxicodone - PO 5 mg Q4H PRN Administration Oxycodone HCl 10 mg 09/19/16 10:00 09/21/16 21:07 Oxycontin - PO 10 mg BID LUIZ Administration Pantoprazole Sodium 40 mg 09/19/16 10:00 09/21/16 09:08 Protonix - PO 40 mg DAILY LUIZ Administration Senna/Docusate Sodium 2 tablet 09/18/16 22:00 09/21/16 22:02 Pericolace - PO 2 tablet BID LUIZ Administration Tramadol HCl 50 mg 09/18/16 14:30 09/22/16 08:16 Ultram - PO 50 mg Q6H LUIZ Administration ASSESSMENT/PLAN: 1) card hypotension - b/p improved, restart cozaar - vital signs q4h - d/c IVF 2) ortho: s/p right THR, 09/19 - PT as per orthopedist - continue prn pain medication 3) hem normocytic anemia - baseline hgb 13.1, repeat 9.3 after 2 unit of PRBC - continue iron BID 4) nephrology IDRIS - prerenal secondary to hypovolemia - repeat creatine 1.1, close to baseline 0.9 5) endo NIDDM - continue fingersticks achs with novolog sliding scale 6) GI GERD - continue protonix (substitute for omeprazole) DVT PPX - chemoprophylaxis on hold due to low H/H start when H/H stable FEN - diabetic diet Dispo: We will continue to follow the patient. Thank you for this consultative opportunity. Visit type - Emergency Visit Emergency Visit: No - New Patient This patient is new to me today: No - Critical Care Critical Care patient: No - Discharge Referral Referred to [facility] Med P.C.: No
[2016-09-22] MEDS: MULTIVITAMINS (DAILY MVI) TABLET (FP) PO SCH (10:08)
[2016-09-22] MEDS: SENNOSIDES/DOCUSATE COMBO (SENNA PLUS) TABLET (UD) PO SCH (10:08)
[2016-09-22] MEDS: PANTOPRAZOLE 40 MG TABLET (FP) PO SCH (10:08)
[2016-09-22] MEDS: ASCORBIC ACID 500 MG TABLET (FP) PO SCH (10:08)
[2016-09-22] MEDS: SODIUM CHLORIDE 1,000 ML IV SCH (10:09)
[2016-09-22] MEDS: oxyCODONE HCL 10 MG SUSTAINED ACTING TABLET PO SCH (10:09)
--- NOTE | 2016-09-22 10:17 | PN ---
Progress Note (short form) - Note Progress Note: Pt seen and examined. Comfortable. Dizziness improved but still present. Feels much better. Afebrile Laboratory Tests 09/22/16 09/22/16 07:36 07:36 WBC 9.5 Hgb 9.3 L Hct 27.6 L Plt Count 164 Sodium 138 Potassium 4.0 Chloride 108 H Carbon Dioxide 22 Anion Gap 8 BUN 41 H D Creatinine 1.1 D Random Glucose 118 H Calcium 8.1 L Total Bilirubin 0.6 AST 52 H ALT 29 Alkaline Phosphatase 105 H Total Protein 4.7 L Albumin 2.2 L Gen: NAD RLE: c/d/i, NVID, thigh swollen but soft and compressible, 5/5 GS/TA/EHL/FHL SILT L2-S1, toes warm A/P 76yo female POD#4 s/p R RENE 1. D/C NS IV. Creatinine normal. 2. PT/OOB - WBAT RLE 3. D/C today to SNF - f/u in office in 2 weeks. Problem List - Problems (1) Osteoarthritis of right hip Code(s): M16.11 - UNILATERAL PRIMARY OSTEOARTHRITIS, RIGHT HIP
--- NOTE | 2016-09-22 10:26 | DS ---
Physical Examination Vital Signs: Vital Signs Temperature 98.2 F 09/22/16 06:00 Pulse Rate 79 09/22/16 06:00 Respiratory Rate 19 09/22/16 06:00 Blood Pressure 134/60 09/22/16 06:00 O2 Sat by Pulse Oximetry (%) 96 09/22/16 06:00 Labs: CBC, BMP 09/22/16 07:36 09/22/16 07:36 Discharge Summary Reason For Visit: RIGHT HIP OSTEOARTHRITIS Current Active Problems Osteoarthritis of right hip (Acute) Procedures: Principal: right hip replacement Hospital Course: Admitted for elective surgery. Procedure performed without complications. Pt received postoperative antibiotic prophylaxis and DVT ppx. Hypotension and ARF postop - improved with fluids and 2U PRBCs. Ambulated with physical therapy. Stable for discharge to SNF with outpatient followup. Condition: Stable - Instructions Diet, Activity, Other Instructions: Dr Casas - Hip Replacement Instructions Keep the Aquacel dressing on until removed by Dr. Casas in 10-14 days - it is antibacterial and waterproof and you can shower with it on. Call the office for a follow-up appointment with Dr. Casas in 10-14 days. Take one Aspirin 325mg daily for 6 weeks to prevent blood clots in your legs. Take one Pantoprazole 40mg daily for 6 weeks to protect against heartburn and ulcers. Take Celebrex 200mg daily for 30 days to reduce swelling and inflammation. For pain: *Mild pain (1-3/10): Take 1 Tramadol tablet every 4 hours as needed. Moderate pain (4-6/10): Take 1 Tramadol tablet and 1 Percocet tablet every 4 hours as needed. Severe pain (7-10/10): Take 1 Tramadol tablet and 2 Percocet tablets every 4 hours as needed. Activity: You can put as much weight on the operative leg as you want. Anterior approach used - there are no hip precautions while in rehab other than avoiding extension + external rotation for the first 6 weeks. Always use a walker or cane for balance and to prevent falls. Disposition: RESIDENTIAL FACILITY - Home Medications Comprehensive Discharge Medication List: Ambulatory Orders Levothyroxine [Synthroid -] 50 mcg PO DAILY 05/16/13 Losartan Potassium 50 mg PO DAILY 07/07/14 Ascorbate Calcium [Vitamin C] 500 mg PO DAILY 09/14/16 Ascorbic Acid [Vitamin C -] 500 mg PO BID tablet 09/22/16 Aspirin [ASA -] 325 mg PO DAILY@0800 #40 tablet 09/22/16 Atorvastatin Ca [Lipitor] 40 mg PO HS #60 tab 09/22/16 Celecoxib [Celebrex -] 200 mg PO DAILY #30 capsule 09/22/16 Cholecalciferol (Vitamin D3) [Vitamin D-400] 400 unit PO DAILY #60 tab 09/22/16 Ferrous Sulfate [Feosol] 325 mg PO BIDWM #60 tab 09/22/16 Gabapentin [Neurontin -] 300 mg PO BID #60 tab 09/22/16 Mag Hydrox/Al Hydrox/Simeth [Mylanta Oral Suspension -] 30 ml PO Q4H PRN #1 bottle 09/22/16 Magnesium Hydrox 2400MG/30Ml [Milk of Magnesia -] 30 ml PO PRN PRN #1 bottle Multivitamins [Multivit ([facility] Formulary)] 1 tab PO DAILY #60 tab 09/22/16 Ondansetron Injection [Zofran Injection] 4 mg IVPB Q6H PRN #1 vial 09/22/16 Oxycodone HCl/Acetaminophen [Percocet 5-325 mg Tablet] 1 - 2 tab PO Q4H PRN #60 tablet MDD 10 09/22/16 Oxycodone Sr [Oxycontin] 10 mg PO BID #60 tab MDD 2 09/22/16 Pantoprazole Sodium [Protonix -] 40 mg PO DAILY #60 tab 09/22/16 Sennosides/Docusate Sodium [Pericolace -] 2 tablet PO BID #60 tablet 09/22/16 Tramadol HCl [Ultram -] 50 mg PO Q6H #90 tablet MDD 4 09/22/16
== END 2016-09-22 14:10 | DRG 470 ==
LOC: FM/S 05:54
PROVIDERS: ADMIT Student in an Organized Health Care Education/Training Program; ATTEND Student in an Organized Health Care Education/Training Program
PROC: 0SR90JA Replacement of Right Hip Joint with Synthetic Substitute, Uncemented, Open Approach (ICD-10-PCS; principal; 2016-09-18 09:35)
DX: M16.11 Unilateral primary osteoarthritis, right hip (principal); D62 Acute posthemorrhagic anemia; E87.1 Hypo-osmolality and hyponatremia; R19.7 Diarrhea, unspecified; I95.81 Postprocedural hypotension; N99.0 Postprocedural (acute) (chronic) kidney failure; R42 Dizziness and giddiness; I10 Essential (primary) hypertension; E78.5 Hyperlipidemia, unspecified; R73.03 Prediabetes; K21.9 Gastro-esophageal reflux disease without esophagitis; E03.9 Hypothyroidism, unspecified; Z87.891 Personal history of nicotine dependence; K44.9 Diaphragmatic hernia without obstruction or gangrene; E21.3 Hyperparathyroidism, unspecified; Y83.8 Other surgical procedures as the cause of abnormal reaction of the patient, or of later complication, without mention of misadventure at the time of the procedure
CPT/HCPCS: 36415; 36430; 73502-TC-RT; 80048; 80053; 83735; 84100; 85025; 85027; 86850; 86900; 86901; 86922; 88304-TC; 88311-TC; 94010; 94760; 97116-GP; 97162-PG; P9038; P9058

== ENCOUNTER 2017-02-18 17:39 | Emergency (ER) | payer OTHER ==
[2017-02-18 17:47] VITALS: BP 142/86; PULSE 74; TEMP 98.3; BMI 34.4
--- NOTE | 2017-02-18 17:55 | PDOC ---
Attending Attestation - Resident Resident Name: Dinesh Barker - ED Attending Attestation I have performed the following: I have examined & evaluated the patient, The case was reviewed & discussed with the resident, I agree w/resident's findings & plan, Exceptions are as noted - Physicial Exam PE: GENERAL: Awake, alert, and fully oriented, in no acute distress HEAD: No signs of trauma EYES: PERRLA, EOMI, sclera anicteric, conjunctiva clear ENT: Auricles normal inspection, hearing grossly normal, nares patent, oropharynx clear without exudates. Moist mucosa NECK: Normal ROM, supple, no lymphadenopathy, JVD, or masses EXTREMITIES: R hip with dec ROM due to pain. No erythema. +Point tenderness to the iliac crest. Remainder of extremities with normal range of motion, no edema. No clubbing or cyanosis. No cords, erythema, or tenderness NEUROLOGICAL: Cranial nerves II through XII grossly intact. Normal speech. Motor and sensation intact. Gait not tested due to nature of complaint. SKIN: Warm, Dry, normal turgor, no rashes or lesions noted. - Medical Decision Making Patient with R hip pain, difficulty ambulating due to severe pain. Previously after her surgery she was ambulatory without pain. Will obtain XR of R hip and pelvis to further evaluate. <Kayla Altaorre - Last Filed: 02/18/17 18:31> - HPI HPI: 02/18/17 18:34 76 y/o F with a PMHx of right hip replacement (5 months ago) presents to the ED with right hip pain for 5 days. Patient reports the pain is only when standing. Pain is alleviated with sitting or laying down. Patient went to a chiropractor a week ago and since then she has had right hip pain. She denies numbness, tingling. Denies recent trauma or injury. Orthopedic Surgeon: Dr. Dev Casas - Medical Decision Making 02/18/17 18:34 Documentation prepared by Poly Landeros, acting as medical records clerk for Kayla Alatorre MD. <Poly Landeros - Last Filed: 02/18/17 18:34>
--- NOTE | 2017-02-18 18:25 | PDOC ---
History of Present Illness - General Chief Complaint: Pain Stated Complaint: PAIN Time Seen by Provider: 02/18/17 17:53 History Source: Patient Exam Limitations: No Limitations - History of Present Illness Initial Comments: 02/20/17 12:57 Patient is a 76 year old F with pmh of right hip replacement about 5 montsh prior presenting with sudden onset right hip pain x 5 days. patient went to chiropracter 6 days ago and began having sudden hip pain the day after. Pain is 10/10 and only when walking. Pain is nonradiating. Patient denies numbness/ tingling/trauma Orthopedic Surgeon: Dr. Dev Casas Past History - Past Medical History Allergies/Adverse Reactions: Allergies Allergy/AdvReac Type Severity Reaction Status Date / Time No Known Drug Allergies Allergy Verified 02/18/17 17:47 Home Medications: Ambulatory Orders Levothyroxine [Synthroid -] 50 mcg PO DAILY 05/16/13 Losartan Potassium 50 mg PO DAILY 07/07/14 Ascorbate Calcium [Vitamin C] 500 mg PO DAILY 09/14/16 Ascorbic Acid [Vitamin C -] 500 mg PO BID tablet 09/22/16 Atorvastatin Ca [Lipitor] 40 mg PO HS #60 tab 09/22/16 Cholecalciferol (Vitamin D3) [Vitamin D-400] 400 unit PO DAILY #60 tab 09/22/16 Ferrous Sulfate [Feosol] 325 mg PO BIDWM #60 tab 09/22/16 Gabapentin [Neurontin -] 300 mg PO BID #60 tab 09/22/16 Omeprazole 20 mg PO DAILY 02/18/17 Anemia: Yes (S/P) Asthma: No Cancer: No Cardiac Disorders: No CVA: No COPD: No CHF: No Dementia: No Diabetes: No GI Disorders: Yes (PEPTIC ULCER) Disorders: No HTN: Yes Hypercholesterolemia: Yes Liver Disease: No Seizures: No Thyroid Disease: Yes - Surgical History Abdominal Surgery: Yes Appendectomy: Yes Cardiac Surgery: No Cholecystectomy: Yes (LAPAROSCOPIC) Lung Surgery: No Neurologic Surgery: No Orthopedic Surgery: Yes (CARPAL TUNNEL) - Immunization History Immunization Up to Date: Yes - Suicide/Smoking/Psychosocial Hx Smoking Status: No Smoking History: Former smoker Have you smoked in the past 12 months: No Number of Cigarettes Smoked Daily: 0 If you are a former smoker, when did you quit?: 1979 Information on smoking cessation initiated: No 'Breaking Loose' booklet given: 05/19/13 Hx Alcohol Use: No Drug/Substance Use Hx: No Substance Use Type: None Hx Substance Use Treatment: No Review of Systems - Review of Systems Able to Perform ROS?: Yes Comments:: 02/20/17 12:58 As per HPI *Physical Exam - Vital Signs Last Vital Signs Temp Pulse Resp BP Pulse Ox 98.3 F 74 20 142/86 98 02/18/17 17:43 02/18/17 17:43 02/18/17 17:43 02/18/17 17:43 02/18/17 17:43 - Physical Exam Comments: 02/20/17 12:59 GENERAL: Awake, alert, and fully oriented, in no acute distress HEAD: No signs of trauma EYES: PERRLA, EOMI, sclera anicteric, conjunctiva clear ENT: Auricles normal inspection, hearing grossly normal, nares patent, oropharynx clear without exudates. Moist mucosa NECK: Normal ROM, supple, no lymphadenopathy, JVD, or masses EXTREMITIES: R hip with dec ROM due to pain. No erythema. +Point tenderness to the iliac crest. Remainder of extremities with normal range of motion, no edema. No clubbing or cyanosis. No cords, erythema, or tenderness NEUROLOGICAL: Cranial nerves II through XII grossly intact. Normal speech. Motor and sensation intact. Gait not tested due to nature of complaint. SKIN: Warm, Dry, normal turgor, no rashes or lesions noted. ED Treatment Course - RADIOLOGY Radiology Studies Ordered: Category Date Time Status HIP & PELVIS-RIGHT [RAD] Stat Radiology 02/18/17 18:25 Ordered Medical Decision Making - Medical Decision Making 76 year old F with right hip pain. Right hip/pelvis x ray. Case signed out to Dr. Gutierrez *DC/Admit/Observation/Transfer Diagnosis at time of Disposition: Right hip pain - Discharge Dispostion Disposition: HOME Condition at time of disposition: Improved - Referrals Referrals: Dev Casas MD [Staff Physician] - Jhonny Thompson MD [Primary Care Provider] - - Patient Instructions Printed Discharge Instructions: DI for Hip Replacement Additional Instructions: Please return to the ER if you experience concerning or worsening symptoms. Dr. Casas's office should give you a call tomorrow to schedule follow up withing the next week. You may use tylenol or ibuprofen as needed at home for pain management.
[2017-02-18] MEDS ORDERED: KETOROLAC TROMETHAMINE 60 MG/2 ML VIAL IM ONE (20:58)
[2017-02-18] MEDS ORDERED: KETOROLAC TROMETHAMINE 60 MG/2 ML VIAL ONE (21:53)
--- NOTE | 2017-02-18 22:53 | PDOC ---
*Physical Exam - Vital Signs Last Vital Signs Temp Pulse Resp BP Pulse Ox 98.3 F 74 20 142/86 98 02/18/17 17:43 02/18/17 17:43 02/18/17 17:43 02/18/17 17:43 02/18/17 17:43 - Physical Exam Comments: 02/18/17 22:49 General Appearance: Nourished. No Apparent Distress HEENT: EOMI, JENNA. Respiratory/Chest: Lungs Clear, Normal Breath Sounds. No Crackles, Rales, Rhonchi, Wheezing Cardiovascular: Regular Rhythm, Regular Rate. No Murmur, Gallops, Rubs Gastrointestinal/Abdominal: Normal Bowel Sounds, Soft. No Guarding, Rebound, Tenderness Musculoskeletal: Tenderness to palpation along the right iliac crest. No CVA Tenderness Extremity: Normal Capillary Refill Integumentary: Normal Color, Dry, Warm Neurologic: Fully Oriented, Alert, Normal Mood/Affect, Normal Response, ED Treatment Course - Medications Given in the ED: ED Medications Discontinued Medications Generic Name Dose Route Start Last Admin Trade Name Debi PRN Reason Stop Dose Admin Ketorolac Tromethamine 60 mg 02/18/17 20:58 02/18/17 21:58 Toradol Injection - IM 02/18/17 20:59 60 mg ONCE ONE Administration Oxycodone/Acetaminophen 1 combo 02/18/17 20:58 02/18/17 21:59 Percocet 5/325 - PO 02/18/17 20:59 Not Given ONCE ONE Progress Note - Progress Note Progress Note: Received sign out on the patient. The patient is a 76 year old female with a history of a right hip replacement 5 months ago who presents for evaluation of 5 days of right hip pain with ambulation. Patient is pending a plain film and discussion with the patient's surgeon Dr. Casas. Medical Decision Making - Medical Decision Making 02/18/17 22:40 Plain film is negative for fracture or acute dislocation as preliminarily read by the elevator constructor helper radiologist pending official read. First page for Dr. Casas awaiting call back. 02/18/17 23:[address] Casas awaiting call back. 02/18/17 23:17 Discussed the case with one of Dr. Casas's associates who are comfortable with discharge and will call the patient tomorrow morning to schedule follow up. We discussed the results with the patient who voiced understanding and is agreeable with the plan. *DC/Admit/Observation/Transfer Diagnosis at time of Disposition: Right hip pain - Discharge Dispostion Disposition: HOME Condition at time of disposition: Improved Admit: No - Referrals Referrals: Jhonny Thompson MD [Primary Care Provider] - Dev Casas MD [Staff Physician] - - Patient Instructions Printed Discharge Instructions: DI for Hip Replacement Additional Instructions: Please return to the ER if you experience concerning or worsening symptoms. Dr. Casas's office should give you a call tomorrow to schedule follow up withing the next week. You may use tylenol or ibuprofen as needed at home for pain management.
== END 2017-02-18 23:29 | disposition home or self-care (01) ==
LOC: JER 17:39
PROC: 3E0233Z Introduction of Anti-inflammatory into Muscle, Percutaneous Approach (ICD-10-PCS; principal; 2017-02-18)
DX: M25.551 Pain in right hip (principal); Z96.641 Presence of right artificial hip joint; E78.00 Pure hypercholesterolemia, unspecified; E03.9 Hypothyroidism, unspecified; D64.9 Anemia, unspecified; Z87.11 Personal history of peptic ulcer disease
CPT/HCPCS: 73523-TC; 96372; 99282-25

== ENCOUNTER 2018-02-18 08:00 | Inpatient (IN) | payer BC, OTHER ==
--- NOTE | 2018-02-18 07:51 | HP ---
Admitting History and Physical - Admission Chief Complaint: left hip osteoarthritis x years History of Present Illness: 77 year old female presents in regard to her left hip. Longstanding history of left hip osteoarthritis. Patient complains of pain, limited ROM, difficulty ambulating and difficulty with ADLs. Patient has failed conservative treatment options including PO medications, activity modification, injections and exercise program. At this point, patient would like to proceed with surgical intervention - left total hip arthroplasty, MAKOplasty. History Source: Patient - Past Medical History PACKING FLOOR WORKER: Yes: Other (Meningitis age 19) Cardiovascular: Yes: HTN, Hyperlipdemia Pulmonary: Yes: Asthma Gastrointestinal: Yes: Diverticulosis, GERD, GI Bleed, Other (colon polyps, hiatal hernia with GERD) Hepatobiliary: Yes: Choledocholithiasis Renal/: Yes: Renal Calculi ([facility] in 2014) Heme/Onc: Yes: Anemia Musculoskeletal: Yes: Osteoarthritis (hip inhections 2014), Other (right hip steroid injection 2014) ENT: Yes: Allergic Rhinitis Endocrine: Yes: Diabetes Mellitus, Hyperparathyroidism, Hyperthyroidism, Hypothyroidism, Other (Thyroid nodule, Parathyroidectomy 07/13) - Past Surgical History Past Surgical History: Yes: Appendectomy, Cholecystectomy, Colonoscopy, Hysterectomy, Oopherectomy, Upper Endoscopy (Parathyroidectomy 07/13) Additional Past Surgical History: See written history & physical. - Smoking History Smoking history: Former smoker Have you smoked in the past 12 months: No Aproximately how many cigarettes per day: 0 If you are a former smoker, when did you quit?: 1979 - Alcohol/Substance Use Hx Alcohol Use: No Number of Drinks Daily: 0 (holidays only) - Social History ADL: Independent Occupation: retired History of Recent Travel: No Home Medications - Allergies Allergies/Adverse Reactions: Allergies Allergy/AdvReac Type Severity Reaction Status Date / Time No Known Drug Allergies Allergy Verified 02/18/17 17:47 - Home Medications Home Medications: Ambulatory Orders Levothyroxine [Synthroid -] 50 mcg PO DAILY 05/16/13 Losartan Potassium 50 mg PO DAILY 07/07/14 Atorvastatin Ca [Lipitor] 40 mg PO HS #60 tab 09/22/16 Cholecalciferol (Vitamin D3) [Vitamin D-400] 400 unit PO DAILY #60 tab 09/22/16 Omeprazole 20 mg PO HS 02/18/17 Gabapentin [Neurontin -] 600 mg PO HS 02/08/18 Tramadol HCl 50 mg PO ASDIR PRN 02/08/18 Family Disease History - Family Disease History Family Disease History: CA: Grandparent (leukemia), Mother (ovarian cancer), Other: Father (lived to 94) Review of Systems - Review of Systems Musculoskeletal: reports: Decreased ROM (left hip), Joint Pain (left hip) Physical Examination Constitutional: Yes: Well Nourished, No Distress Eyes: Yes: Conjunctiva Clear HENT: Yes: Atraumatic, Normocephalic Neck: Yes: Supple Cardiovascular: Yes: Regular Rate and Rhythm Respiratory: Yes: Regular Gastrointestinal: Yes: Soft ...Rectal Exam: Yes: Deferred Musculoskeletal: Yes: Joint Stiffness (left hip) Assessment/Plan 77 year old female presents in regard to her left hip. Longstanding history of left hip osteoarthritis. Patient complains of pain, limited ROM, difficulty ambulating and difficulty with ADLs. Patient has failed conservative treatment options including PO medications, activity modification, injections and exercise program. At this point, patient would like to proceed with surgical intervention - left total hip arthroplasty, MAKOplasty. Pros, cons, risks, benefits and alternatives of a left total hip arthoplasty, MAKOplasty was discussed with the patient at length. Patient confirms her understanding and consents to proceed with a left total hip arthroplasty, MAKOplasty.
[~2018-02-18 08:00] MED LIST: CEFAZOLIN 2 GM in DEXTROSE 5%-WATER - 50 ML IVPB ONE; ROPIVICAINE 0.2%/MORPH PF/KETOROLAC - 51ML DISP.SYRINGE IA ONE; TRANEXAMIC ACID 1000 MG/10 ML VIAL IVPUSH ONE
[2018-02-18 09:36] VITALS: BMI 35.5
[2018-02-18] MEDS ORDERED: ceFAZolin SODIUM 1 GM VIAL ONE ×2 (10:11→12:01)
[2018-02-18] MEDS ORDERED: VANCOMYCIN 1,000 MG VIAL (RESTRICTED TO ID ONLY) ONE (10:11)
[2018-02-18] MEDS ORDERED: PROPOFOL 20 ML ONE ×3 (10:19→13:35)
[2018-02-18] MEDS: GABAPENTIN 300 MG CAPSULE (FP) PO ONE (10:30)
[2018-02-18] MEDS: CELECOXIB 200 MG CAPSULE PO ONE (10:30)
[2018-02-18] MEDS: oxyCODONE HCL 10 MG SUSTAINED ACTING TABLET PO ONE (10:30)
[2018-02-18] MEDS ORDERED: ROPIVACAINE HCL 0.5% 30ML VIAL ONE (10:31)
[2018-02-18] MEDS ORDERED: DEXAMETHASONE SOD PHOSPHATE/PF 10 MG/ML SDV ONE (10:31)
[2018-02-18] MEDS ORDERED: LIDOCAINE 1% P/F 10 MG/ML VIAL ONE (10:31)
[2018-02-18] MEDS ORDERED: EPINEPHrine/PF 1 MG/1 ML (1:1,000) AMPULE ONE (10:31)
[2018-02-18] MEDS: PANTOPRAZOLE 40 MG TABLET (FP) PO ONE (10:31)
[2018-02-18] MEDS ORDERED: MIDAZOLAM HCL 2 MG/2 ML SINGLE DOSE VIAL ONE (10:32)
[2018-02-18] MEDS ORDERED: BUPIVACAINE HCL/PF 0.5% (5MG/ML) 10 ML VIAL ONE (11:31)
[2018-02-18] MEDS ORDERED: ePHEDrine SULFATE 50 MG/1 ML AMPULE ONE (11:50)
[2018-02-18] MEDS ORDERED: PHENYLEPHRINE HCL 10 MG/1 ML SINGLE DOSE VIAL ONE (12:21)
[2018-02-18] MEDS ORDERED: LACTATED RINGERS SOLUTION 1,000 ML IV SCH ×2 (12:30→15:15)
[2018-02-18] MEDS ORDERED: ONDANSETRON 4 MG/2 ML VIAL IVPUSH PRN ×2 (12:30→15:10)
[2018-02-18] MEDS ORDERED: oxyCODONE HCL 5 MG TABLET PO PRN (12:30)
[2018-02-18] MEDS ORDERED: TRANEXAMIC ACID 1000 MG/10 ML VIAL ONE (13:40)
[2018-02-18] MEDS ORDERED: ROPIVICAINE 0.2%/MORPH PF/KETOROLAC - 51ML DISP.SYRINGE IA ONE ×3 (13:49→14:20)
--- NOTE | 2018-02-18 15:03 | OP ---
Operative Note - Note: Operative Date: 02/18/18 Pre-Operative Diagnosis: left hip OA Operation: left SHAY RENE Post-Operative Diagnosis: Same as Pre-op Surgeon: Dev Casas Change Control Coordinator: Anita Ochoa Anesthesia: Spinal Estimated Blood Loss (mls): 200
[2018-02-18] MEDS ORDERED: MAGNESIUM HYDROX 2400MG/30ML ORAL SUSPENSION 30 ML CUP PO PRN (15:10)
[2018-02-18] MEDS ORDERED: MAG HYDROX/AL HYDROX/SIMETH 30 ML UNIT-DOSE CUP PO PRN (15:10)
[2018-02-18] MEDS ORDERED: ACETAMINOPHEN 1000 MG/100 ML VIAL (NON FORMULARY) IVPB ONE (15:13)
[2018-02-18] MEDS: traMADol HCL 50 MG TABLET PO SCH ×2 (15:20→22:12)
[2018-02-18] MEDS: KETOROLAC TROMETHAMINE 30 MG/1 ML VIAL IVPUSH SCH ×2 (15:20→22:09)
[2018-02-18] MEDS: CEFAZOLIN 2 GM/D5W 2 GM/50 ML ML IVPB SCH (18:32)
--- NOTE | 2018-02-18 19:09 | SPEC ---
DATE OF OPERATION: 02/18/2018 PREOPERATIVE DIAGNOSIS: Left hip osteoarthritis. POSTOPERATIVE DIAGNOSIS: Left hip osteoarthritis. PROCEDURE: Left total hip replacement with MAKOplasty robotic navigation. ATTENDING: Mari Garcia MD SUPERINTENDENT FACTORY: JUAN MANUEL Marc ANESTHESIA: Spinal plus sedation. ESTIMATED BLOOD LOSS: 200 mL COMPLICATIONS: None. DISPOSITION: The patient was transferred to the PACU in stable condition. IMPLANTS USED: Belvue Accolade II size 3 femoral component, Belvue Tritanium 48-mm acetabular component with 3 acetabular screws, MDM bipolar head ball and liner. INDICATIONS: This is a 77-year-old female who is a longtime patient of mine, who has been diagnosed with bilateral hip osteoarthritis. She underwent a right total hip replacement in August 2016, and did well postoperatively. She continued to have worsening left hip pain, and this was not relieved by nonoperative treatments and led to significant ambulatory dysfunction. She was, therefore, indicated for a left total hip replacement with MAKOplasty robotic navigation. The risks, benefits, and alternatives to the procedure were explained to the patient in great detail, and she elected to proceed with the surgery. On the day of surgery, the patient was taken to the operating room and placed on the OR table. Spinal anesthesia was administered by the anesthesiologist. The patient was then positioned in the lateral decubitus position on the table and all bony prominences were padded. An axillary roll was placed. The operative hip was then prepped and draped in the usual sterile fashion and intravenous antibiotics were given for infection prophylaxis. A surgical time-out was then performed with the team, and the patients identity, procedure, side, availability of implants, and the administration of antibiotics were confirmed. An approximately 15-cm longitudinal incision was made through the skin centered on the greater trochanter of the hip. This dissection was carried down through the subcutaneous tissues to the deep fascia. This fascia was then incised and a Cobra was placed around the inferior femoral neck. Electrocautery was used to reflect the anterior 40% of the gluteus medius and minimus starting at the musculotendinous junction and leaving a cuff for closure. This was reflected to reveal the capsule of the hip joint. An anterior capsulectomy was performed and the femoral head and neck were visualized. Grade 4 changes were noted diffusely throughout the joint. At this point, three small stab incisions were made superior to the main incision along the iliac crest. Three self-drilling Steinmann pins were then placed and the [employer] Systems pelvic array was attached. Reference points on the limb were then entered into the robotic device and the limb length deficiency, offset, and femoral neck resection level were then calculated by the software. The hip was then dislocated with traction and external rotation. An oscillating saw was used to make the femoral neck cut at the level previously templated, and the femoral head was removed. Attention was then turned to the acetabulum. Retractors were then placed around the acetabulum and the labrum was removed. An acetabular checkpoint pin and the [employer] software were used to register the contours of the acetabulum. The acetabulum was then reamed in a single stage to the preoperatively templated size using the [employer] robotic arm. The appropriately sized cup was then impacted and had solid fixation as well as the preset inclination and version of 40 and 20 degrees, respectively. A polyethylene liner was then placed in the cup. Attention was then turned back to the femur, which was externally rotated for improved visualization. A femoral neck elevator was used to present the femoral neck cut, a box osteotome was used to enter the femoral canal, and a canal finder was used to go down the femoral shaft. The Sravan broaches were used sequentially until the optimal scratch fit was achieved. This correlated with the preoperatively templated size. From here, several different offset head and neck configurations were tested until excellent stability and length were obtained. These measurements were quantified using the [employer] software. All trial components were then removed, the femur was copiously irrigated, and the final components were placed. Leg length and stability were checked again and found to be excellent. Irrigation was performed again. Wound closure was started by repairing the abductor muscles with a no. 2 FiberWire stitch in a Krackow configuration passed through bone tunnels in the greater trochanter and tied over a bony bridge. This repair was then reinforced with a 0 V-Loc 180 barbed suture. Next, no. 1 Polysorb and 0 V-Loc 180 were used to close the fascia. The deep subcutaneous tissue was closed with no. 1 Polysorb sutures, and 2-0 Polysorb was used for the superficial subcutaneous tissue. The skin was closed using both 3-0 V-Loc 90 suture in a running subcuticular fashion and SwiftSet skin adhesive. The Sravan array and pins were removed from the iliac crest and the stab incision sites were irrigated and closed with 4-0 Polysorb sutures and SwiftSet skin adhesive. Once this was completed, a sterile dressing was applied. The patient was then awakened and taken to the PACU in stable condition. ADDENDUM: After final implants were placed, a 3-minute dilute Betadine lavage was performed. Following this, the wound was thoroughly irrigated with normal saline, and wound closure was begun. MARI GARCIA M.D. MARSHAL/[id number]
[2018-02-18] MEDS ORDERED: GABAPENTIN 300 MG CAPSULE (FP) PO SCH (22:00)
[2018-02-18] MEDS: CELECOXIB 200 MG CAPSULE PO SCH (22:10)
[2018-02-18] MEDS: ATORVASTATIN CA 40 MG TABLET (FP) PO SCH (22:10)
[2018-02-18] MEDS: GABAPENTIN 300 MG CAPSULE (FP) PO SCH (22:10)
[2018-02-18] MEDS: SENNOSIDES/DOCUSATE COMBO (SENNA PLUS) TABLET (UD) PO SCH (22:11)
[2018-02-18] MEDS: oxyCODONE HCL 10 MG SUSTAINED ACTING TABLET PO SCH (22:11)
[2018-02-18] MEDS: ACETAMINOPHEN 325 MG TABLET (FP) PO SCH (22:12)
[2018-02-18] MEDS: ASCORBIC ACID 500 MG TABLET (FP) PO SCH (22:13)
[2018-02-19] MEDS ORDERED: DEXAMETHASONE SOD PHOSPHATE 10 MG/1 ML VIAL IVPB ONE
[2018-02-19] MEDS: CEFAZOLIN 2 GM/D5W 2 GM/50 ML ML IVPB SCH (02:00)
[2018-02-19] MEDS: KETOROLAC TROMETHAMINE 30 MG/1 ML VIAL IVPUSH SCH ×2 (03:09→09:29)
[2018-02-19] MEDS: traMADol HCL 50 MG TABLET PO SCH ×4 (03:10→21:46)
[2018-02-19] MEDS: ACETAMINOPHEN 325 MG TABLET (FP) PO SCH ×4 (03:11→21:42)
[2018-02-19] MEDS: oxyCODONE HCL 5 MG TABLET PO PRN (06:07)
[2018-02-19] MEDS: LEVOTHYROXINE NA 50 MCG TABLET (FP) PO SCH (06:09)
[2018-02-19] MEDS: GABAPENTIN 300 MG CAPSULE (FP) PO ONE (07:18)
[2018-02-19] MEDS: CELECOXIB 200 MG CAPSULE PO ONE (07:18)
[2018-02-19] MEDS: PANTOPRAZOLE 40 MG TABLET (FP) PO ONE (07:19)
[2018-02-19] MEDS: oxyCODONE HCL 10 MG SUSTAINED ACTING TABLET PO ONE (07:19)
[2018-02-19] MEDS ORDERED: ASPIRIN 325 MG TABLET PO SCH (08:00)
[2018-02-19 08:23] LABS: MCHC 34.3 g/dl (32.0-36.0); MEAN CELL VOLUME 87.5 fl (80-96); MEAN PLT VOLUME 9.2 fl (7.5-11.1); PLATELET COUNT 198 K/MM3 (134-434); RBC 4.01 M/mm3 (3.60-5.2); RDW 14.3 % (11.6-15.6); WHITE BLOOD COUNT 9.9 K/mm3 (4.0-10.8)
[2018-02-19 08:29] LABS: ANION GAP 6 MMOL/L (8-16); BLOOD UREA NITROGEN 37 mg/dl (7-18); CALCIUM 8.7 mg/dl (8.4-10.2); CHLORIDE 106 mmol/L (98-107); CO2 23 mmol/L (22-28); CREATININE 1.3 mg/dl (0.6-1.3); GLUCOSE,RANDOM 167 mg/dl (74-106); POTASSIUM 4.7 mmol/L (3.5-5.1); SODIUM 135 mmol/L (136-145)
[2018-02-19] MEDS: LOSARTAN POTASSIUM 50 MG TABLET (FP) PO SCH (09:27)
[2018-02-19] MEDS: ASCORBIC ACID 500 MG TABLET (FP) PO SCH ×2 (09:27→21:44)
[2018-02-19] MEDS: SENNOSIDES/DOCUSATE COMBO (SENNA PLUS) TABLET (UD) PO SCH ×2 (09:27→21:42)
[2018-02-19] MEDS: MULTIVITAMINS (DAILY MVI) TABLET (FP) PO SCH (09:27)
[2018-02-19] MEDS: GABAPENTIN 300 MG CAPSULE (FP) PO SCH ×2 (09:27→21:42)
[2018-02-19] MEDS: CELECOXIB 200 MG CAPSULE PO SCH ×2 (09:27→21:44)
[2018-02-19] MEDS: PANTOPRAZOLE 40 MG TABLET (FP) PO SCH (09:29)
[2018-02-19] MEDS: oxyCODONE HCL 10 MG SUSTAINED ACTING TABLET PO SCH ×2 (09:29→21:42)
--- NOTE | 2018-02-19 10:56 | PN ---
Progress Note (short form) - Note Progress Note: 77F POD1 L THR under spinal anesthetic with peripheral nerve blocks for post operative pain relief. Pt states that pain is well controlled and reports no anesthetic complications. AVSS. Motor and sensory function intact in bilateral lower extremities. Continue current regimen.
[2018-02-19] MEDS: ATORVASTATIN CA 40 MG TABLET (FP) PO SCH (21:41)
--- NOTE | 2018-02-19 21:42 | PN ---
Progress Note (short form) - Note Progress Note: Pt seen and examined. Doing well. AVSS Selected Entries 02/19/18 02/19/18 14:08 20:51 Temperature 98.1 F Pulse Rate 88 Respiratory 17 Rate Blood Pressure 130/67 O2 Sat by Pulse 95 Oximetry (%) Oxygen Delivery Room Air Method Laboratory Tests 02/19/18 02/19/18 07:54 07:54 WBC 9.9 Hgb 12.0 Hct 35.0 D Plt Count 198 Sodium 135 L Potassium 4.7 Chloride 106 Carbon Dioxide 23 Anion Gap 6 L BUN 37 H Creatinine 1.3 Creat Clearance w eGFR 39.72 Random Glucose 167 H D Calcium 8.7 Gen: NAD LLE: c/d/i, NVID A/P 77yo female POD#1 s/p L RENE PT/OOB - WBAT LLE D/C to rehab in AM after PT D/C ASA - start Eliquis 2.5mg PO BID x 35 days
--- NOTE | 2018-02-19 21:52 | DS ---
Physical Examination Vital Signs: Vital Signs Temperature 98.1 F 02/19/18 14:08 Pulse Rate 88 02/19/18 14:08 Respiratory Rate 17 02/19/18 14:08 Blood Pressure 130/67 02/19/18 14:08 O2 Sat by Pulse Oximetry (%) 95 02/19/18 14:08 Labs: CBC, BMP 02/19/18 07:54 02/19/18 07:54 Discharge Summary Reason For Visit: OSTEARTHRITIS LEFT HIP Current Active Problems Osteoarthritis of left hip (Acute) Procedures: Principal: Left [facility] Hospital Course: Admitted for elective surgery. Procedure performed without complications. Pt received postoperative antibiotic prophylaxis and DVT ppx. Ambulated with physical therapy. Stable for discharge home with outpatient followup. Condition: Stable - Instructions Diet, Activity, Other Instructions: Dr Garcia - Hip Replacement Instructions Keep the Aquacel dressing on until removed by Dr. Garcia in 10-14 days - it is antibacterial and waterproof and you can shower with it on. DO NOT REMOVE DRESSING AT REHAB FACILITY WITHOUT CONTACTING DR. GARCIA FIRST! Call the office for a follow-up appointment with Dr. Garcia on SundayMar 05. [phone] Take ELIQUIS 2.5mg twice daily for 35 days to prevent blood clots in your legs. Take one Pantoprazole 40mg daily for 6 weeks to protect against heartburn and ulcers. Take Cephalexin (antibiotic) 3x/day for 10 days postop to help prevent skin infection. Take a multivitamin, stool softener and extra Vitamin C supplement daily. For pain: OxyContin 10mg PO BID standing dose for baseline pain control. PRN: Take 1-2 Percocet (5/325mg) tablets every 4 hours as needed for breakthrough pain. Activity: Weight bearing as tolerated. Anterolateral approach used - patient has NO HIP PRECAUTIONS. Always use a walker or cane for balance and to prevent falls. Expect to see swelling / bruising from the operative site all the way down to your toes. Wear the compression stocking on the operative side during the day to minimize how much swelling there is in your foot/ankle. Don't wear the stocking at night. You don't have to wear the stocking on the other side. [facility] - Home Medications Comprehensive Discharge Medication List: Ambulatory Orders Levothyroxine [Synthroid -] 50 mcg PO DAILY 05/16/13 Losartan Potassium 50 mg PO DAILY 07/07/14 Atorvastatin Ca [Lipitor] 40 mg PO HS #60 tab 09/22/16 Cholecalciferol (Vitamin D3) [Vitamin D-400] 400 unit PO DAILY #60 tab 09/22/16 Gabapentin [Neurontin -] 600 mg PO HS 02/08/18 Apixaban [Eliquis -] 2.5 mg PO BID tablet 02/19/18 Cephalexin Monohydrate [Keflex -] 500 mg PO TID #30 capsule 02/19/18 Multivitamins [Multivit ([facility] Formulary)] 1 tab PO DAILY tab 02/19/18 Oxycodone HCl/Acetaminophen [Percocet 5-325 mg Tablet] 1 - 2 tab PO Q4H PRN #60 tablet MDD 10 02/19/18 Pantoprazole Sodium [Protonix -] 40 mg PO DAILY tablet.ec 02/19/18 Pantoprazole Sodium [Protonix -] 40 mg PO DAILY #40 tablet.ec 02/19/18 Sennosides/Docusate Sodium [Pericolace -] 2 tablet PO BID tablet 02/19/18 oxyCODONE SR [Oxycontin] 10 mg PO BID tab.er.12h MDD 2 02/19/18
[2018-02-19] MEDS: APIXABAN 2.5 MG TABLET PO SCH (22:28)
[2018-02-20] MEDS: ACETAMINOPHEN 325 MG TABLET (FP) PO SCH ×3 (06:01→16:38)
[2018-02-20] MEDS: oxyCODONE HCL 5 MG TABLET PO PRN ×2 (06:08→16:37)
[2018-02-20] MEDS: LEVOTHYROXINE NA 50 MCG TABLET (FP) PO SCH (06:08)
[2018-02-20 08:58] LABS: HEMATOCRIT 31.8 % (32.4-45.2); HEMOGLOBIN 10.8 GM/dl (10.7-15.3); MCH 29.9 pg (25.7-33.7); MCHC 33.8 g/dl (32.0-36.0); MEAN CELL VOLUME 88.5 fl (80-96); PLATELET COUNT 214 K/MM3 (134-434); RDW 14.7 % (11.6-15.6); WHITE BLOOD COUNT 10.1 K/mm3 (4.0-10.8)
[2018-02-20] MEDS: LOSARTAN POTASSIUM 50 MG TABLET (FP) PO SCH (09:15)
[2018-02-20] MEDS: GABAPENTIN 300 MG CAPSULE (FP) PO SCH (09:16)
[2018-02-20] MEDS: oxyCODONE HCL 10 MG SUSTAINED ACTING TABLET PO SCH (09:16)
[2018-02-20] MEDS: ASCORBIC ACID 500 MG TABLET (FP) PO SCH (09:16)
[2018-02-20] MEDS: SENNOSIDES/DOCUSATE COMBO (SENNA PLUS) TABLET (UD) PO SCH (09:16)
[2018-02-20] MEDS: APIXABAN 2.5 MG TABLET PO SCH (09:16)
[2018-02-20] MEDS: MULTIVITAMINS (DAILY MVI) TABLET (FP) PO SCH (09:16)
[2018-02-20] MEDS: PANTOPRAZOLE 40 MG TABLET (FP) PO SCH (09:16)
[2018-02-20 14:17] VITALS: BP 105/63; PULSE 81; TEMP 98.1
--- NOTE | 2018-02-21 12:56 | PATH ---
Surgical Pathology Report Patient Name: PAULETTE TORRES Med. Rec. #: [id number] /Age/Gender: 1940 (Age: 77) / F Account: [id number] Location: [facility] MED-SURG Taken: 02/18/2018 Received: 02/18/2018 Reported: 02/21/2018 Physicians: Dev Casas M.D. Specimen(s) Received LEFT FEMORAL HEAD Clinical History Osteoarthritis left hip Final Diagnosis BONE, FEMORAL HEAD, LEFT, TOTAL HIP REPLACEMENT MAKOPASTY: BONE WITH DEGENERATIVE JOINT DISEASE. Electronically Signed Kirsten Hein M.D. Gross Description Received in formalin, labeled "left femoral head," is a 4.0 x 4.0 x 3.3 cm. femoral head with a 1.0 cm in length portion of neck attached. The margin of resection is smooth. No areas of eburnation are identified. The articular surface is vergara-yellow and diffusely granular. The underlying trabecular bone is yellow and hard. A member service representative section is submitted in one cassette, following decalcification. /02/20/2018 [facility]02/20/2018
== END 2018-02-20 18:04 | DRG 470 ==
LOC: FM/S 09:10
PROVIDERS: ADMIT Student in an Organized Health Care Education/Training Program; ATTEND Student in an Organized Health Care Education/Training Program
PROC: 8E0Y0CZ Robotic Assisted Procedure of Lower Extremity, Open Approach (ICD-10-PCS; 2018-02-18)
PROC: 0SRB02A Replacement of Left Hip Joint with Metal on Polyethylene Synthetic Substitute, Uncemented, Open Approach (ICD-10-PCS; principal; 2018-02-18 12:18)
DX: M16.12 Unilateral primary osteoarthritis, left hip (principal); I10 Essential (primary) hypertension; J45.909 Unspecified asthma, uncomplicated; E78.5 Hyperlipidemia, unspecified; Z87.891 Personal history of nicotine dependence
CPT/HCPCS: 36415; 73502-TC-LT-FY; 80048; 85027; 88305-TC; 88311-TC; 94760; 97116-GP; J0131; J1100

== ENCOUNTER 2018-06-07 08:43 | Day surgery (SDC) | payer BC ==
[2018-06-07] MEDS ORDERED: IRON SUCROSE INJECTION 100 MG in SODIUM CHLORIDE 95 ML IVPB ONE (09:15)
[2018-06-07 09:51] VITALS: TEMP 98.3
[2018-06-07 13:05] VITALS: BP 130/89; PULSE 67
== END 2018-06-07 11:35 | disposition home or self-care (01) ==
LOC: JINFUSION 08:43 → J7W 08:48 → JINFUSION 11:35
PROVIDERS: ATTEND Internal Medicine
PROC: 3E033GC Introduction of Other Therapeutic Substance into Peripheral Vein, Percutaneous Approach (ICD-10-PCS; principal; 2018-06-07)
DX: D50.9 Iron deficiency anemia, unspecified (principal)
CPT/HCPCS: 96365; J1756

== ENCOUNTER 2018-06-13 12:53 | Inpatient (IN) | payer BC ==
[2018-06-13 13:06] VITALS: BMI 35.3
--- NOTE | 2018-06-13 13:11 | PDOC ---
Rapid Medical Evaluation Chief Complaint: Lightheaded Time Seen by Provider: 06/13/18 12:57 Medical Evaluation: Allergies Allergy/AdvReac Type Severity Reaction Status Date / Time No Known Drug Allergies Allergy Verified 02/18/18 10:28 Vital Signs Temp Pulse Resp BP Pulse Ox 98.5 F 88 16 155/77 100 06/13/18 13:02 06/13/18 13:02 06/13/18 13:02 06/13/18 13:02 06/13/18 13:02 06/13/18 13:07 I have performed a brief in-person evaluation of this patient. The patient presents with a chief complaint of:h/o iron deficiency anemia requiring iron transfusion, HLP, HTN and left hip replacement 5 months ago, dizziness, light headedness and malaise Pertinent physical exam findings: A&O x 3 , normal cardio exam. Lungs CTAB. Ekg nrs. 100%RA O2 sat I have ordered the following: EKG, CBC,CMP, UA,UCX. cardiac profile The patient will proceed to the ED for further evaluation. 06/13/18 13:10 Discharge Disposition - Diagnosis Light headedness - Referrals - Patient Instructions - Post Discharge Activity
[2018-06-13 13:59] LABS: BASO % 0.8 % (0-2.0); HEMATOCRIT 24.8 % (32.4-45.2); LYMPH % 19.2 % (8-40); MCH 25.3 pg (25.7-33.7); MCHC 32.4 g/dl (32.0-36.0); MEAN CELL VOLUME 78.1 fl (80-96); MONO % 8.4 % (3.8-10.2); NEUT % 70.6 % (42.8-82.8); PLATELET COUNT 318 K/MM3 (134-434); RBC 3.17 M/mm3 (3.60-5.2); WHITE BLOOD COUNT 6.5 K/mm3 (4.0-10.0)
--- NOTE | 2018-06-13 14:26 | PDOC ---
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 The patient states she felt lightheaded as if she was going to faint last night. She denies fainting. She states she called her son to her house who thought that her pulse was slightly irregular. She states she does not recall having palpitations last night, but reports a moment of palpitations this morning. She states she felt slightly short of breath as well which she describes as non-painful shallow breaths. She states she was able to go to sleep, however, woke up lightheaded, dizzy, and generally weak today. She denies syncope today, but reports feeling similar to last nights episode. She states she was found to be anemic last week sunday and is scheduled for bi weekly blood transfusions with her next transfusion scheduled for next 06/21/18. The patient states she had never been anemic before but was told she had a bleeding ulcer 2 years ago. She denies having a recent colonoscopy, but has had one in the past. She states her PCP, Dr. Thompson, is currently investigating She reportedly was discontinued from her Losartan about 2 weeks ago. She denies Chest pain, fevers, chills, n/v. She denies urinary symptoms or changes. Allergies: None Past surgical history: Appendectomy, cholecystectomy, bilateral hip surgeries, total hysterectomy, thyroidectomy, carpal tunnel Social history: She denies alcohol, tobacco and drug use PCP - Dr. Jhonny Thompson GI: Dr. Wray Cards: Dr. Jacobson (Frank) LUCIUS General/Constitutional: (+) generalized weakness. no fevers or chills. No sweats. HEENT: (+) headache and dizziness. No congestion. No visual/hearing disturbances. CVS: no cp. Resp: (+) sob. No cough. Gastrointestinal: no abdominal pain, nausea or vomiting. Genitourinary: no urinary sx, hematuria. MUSCULOSKELETAL: No joint pain and swelling. No neck or back pain. SKIN: no redness or skin changes, no discharge, no rash. No wounds. Hematologic: no easy bruising/bleeding. HEMATOLOGIC/LYMPHATIC: (+) anemia, No easy bruising/bleeding, or history of blood clots. NEUROLOGIC: (+)headache and dizziness. No LOC or altered mental status. No weakness, numbness or tingling. Allergic/Immunologic: no allergies All other systems reviewed and negative, or as documented in HPI. Physical exam General: Well appearing, awake and alert, NAD. HEENT: (+) dry oral mucosa. NCAT, PERRL, EOMI, clear conjunctiva, anicteric, clear oropharynx, no oral lesions. No nystagmus. Neck: neck supple, FROM Resp: CTAB, normal and even respirations, no respiratory distress CVS: RRR, no murmurs, 2+ peripheral pulses throughout, no peripheral edema Abdomen: soft, NTND, no rebound or guarding. No CVAT. Rectal: external nonthrombosed pink hemorrhoid; no gross blood or masses on exam. Guaiac sent Back: nontender, normal inspection and ROM MSK: no edema, MURILLO x4, ROM intact. No clubbing or cyanosis. normal bulk and tone. Extremities: (+) 1+ pitting edema to b/l lower extremities with sock line. no calf tenderness Neuro: alert, oriented appropriately; no focal neurologic deficits. 5/5 prox and distal strength in all extrem. SILT. No nystagmus. Speech clear. Skin: warm and well perfused, cap refill <2 sec, normal color <Zenia Varma - Last Filed: 06/13/18 15:37> - General History Source: Patient, Family Exam Limitations: No Limitations <Sugey Kiser - Last Filed: 06/13/18 16:36> - General Chief Complaint: Lightheaded Stated Complaint: PAPALATION Time Seen by Provider: 06/13/18 12:57 Past History <Zenia Varma - Last Filed: 06/13/18 15:37> - Past Medical History Anemia: Yes (IRON) Asthma: No Cancer: No Cardiac Disorders: No CVA: No COPD: No CHF: No Dementia: No Diabetes: No GI Disorders: Yes (PEPTIC ULCER) Disorders: No HTN: Yes Hypercholesterolemia: Yes Liver Disease: No Seizures: No Thyroid Disease: Yes (per patient) - Surgical History Abdominal Surgery: Yes Appendectomy: Yes Cardiac Surgery: No Cholecystectomy: Yes (LAPAROSCOPIC) Lung Surgery: No Neurologic Surgery: No Orthopedic Surgery: Yes (CARPAL TUNNEL) - Immunization History Immunization Up to Date: Yes - Suicide/Smoking/Psychosocial Hx Smoking Status: No Smoking History: Never smoked Have you smoked in the past 12 months: No Number of Cigarettes Smoked Daily: 0 If you are a former smoker, when did you quit?: 1979 Information on smoking cessation initiated: No 'Breaking Loose' booklet given: 05/19/13 Hx Alcohol Use: No Drug/Substance Use Hx: No Substance Use Type: None Hx Substance Use Treatment: No <Sugey Kiser - Last Filed: 06/13/18 16:36> - Past Medical History Allergies/Adverse Reactions: Allergies Allergy/AdvReac Type Severity Reaction Status Date / Time No Known Drug Allergies Allergy Verified 02/18/18 10:28 Home Medications: Ambulatory Orders Levothyroxine [Synthroid -] 50 mcg PO DAILY 05/16/13 Atorvastatin Ca [Lipitor] 40 mg PO HS #60 tab 09/22/16 Cholecalciferol (Vitamin D3) [Vitamin D-400] 400 unit PO DAILY #60 tab 09/22/16 Gabapentin [Neurontin -] 600 mg PO HS 02/08/18 Apixaban [Eliquis -] 2.5 mg PO BID tablet 02/19/18 Polyethylene Glycol 3350 [Miralax (For Daily Use) -] 17 gm PO DAILY 06/13/18 *Physical Exam - Vital Signs Last Vital Signs Temp Pulse Resp BP Pulse Ox 98.5 F 88 16 155/77 100 06/13/18 13:02 06/13/18 13:02 06/13/18 13:02 06/13/18 13:02 06/13/18 13:02 <Zenia Varma - Last Filed: 06/13/18 15:37> - Vital Signs Last Vital Signs Temp Pulse Resp BP Pulse Ox 98.5 F 88 16 155/77 100 06/13/18 13:02 06/13/18 13:02 06/13/18 13:02 06/13/18 13:02 06/13/18 13:02 <Sugey Kiser - Last Filed: 06/13/18 16:36> Moderate Sedation - Procedure Monitoring Vital Signs: Procedure Monitoring Vital Signs Temperature 98.5 F 06/13/18 13:02 Pulse Rate 88 06/13/18 13:02 Respiratory Rate 16 06/13/18 13:02 Blood Pressure 155/77 06/13/18 13:02 O2 Sat by Pulse Oximetry (%) 100 06/13/18 13:02 <Zenia Varma - Last Filed: 06/13/18 15:37> - Procedure Monitoring Vital Signs: Procedure Monitoring Vital Signs Temperature 98.5 F 06/13/18 13:02 Pulse Rate 88 06/13/18 13:02 Respiratory Rate 16 06/13/18 13:02 Blood Pressure 155/77 06/13/18 13:02 O2 Sat by Pulse Oximetry (%) 100 06/13/18 13:02 <Sugey Kiser - Last Filed: 06/13/18 16:36> Heart Score/ECG Review - ECG Impressions Normal ECG: Yes Comment:: 06/13/18 14:46 EKG normal sinus rhythm, no interval abnormalities, narrow QRS, ST and T wave segments and morphology normal. Nonspecific T wave abnormalities <Sugey Kiser - Last Filed: 06/13/18 16:36> ED Treatment Course - LABORATORY CBC & Chemistry Diagram: 06/13/18 13:50 06/13/18 14:45 - ADDITIONAL ORDERS Additional order review: Laboratory Results 06/13/18 06/13/18 06/13/18 14:53 14:45 14:45 PT with INR 11.40 INR 0.97 Sodium 140 Potassium 4.4 Chloride 108 H Carbon Dioxide 27 Anion Gap 5 L BUN 34 H Creatinine 1.1 Creat Clearance w eGFR 48.04 Random Glucose 90 Calcium 8.6 Total Bilirubin AST ALT Alkaline Phosphatase Creatine Kinase Creatine Kinase Index CK-MB (CK-2) Troponin I Total Protein Albumin Stool Occult Blood Positive 06/13/18 13:50 PT with INR INR Sodium 138 Potassium 6.2 H* Chloride 109 H Carbon Dioxide 24 Anion Gap 6 L BUN 37 H Creatinine 1.1 Creat Clearance w eGFR 48.04 Random Glucose 78 Calcium 8.5 Total Bilirubin 0.6 AST 63 H ALT 22 Alkaline Phosphatase 104 Creatine Kinase 180 Creatine Kinase Index 0.6 CK-MB (CK-2) 1.1 Troponin I < 0.02 Total Protein 6.9 Albumin 3.4 Stool Occult Blood 06/13/18 13:50 RBC 3.17 L MCV 78.1 L MCHC 32.4 RDW 19.0 H MPV 8.0 Neutrophils % 70.6 D Lymphocytes % 19.2 D Monocytes % 8.4 Eosinophils % 1.0 Basophils % 0.8 <AvaniZenia - Last Filed: 06/13/18 15:37> - LABORATORY CBC & Chemistry Diagram: 06/13/18 13:50 06/13/18 14:45 - ADDITIONAL ORDERS Additional order review: Laboratory Results 06/13/18 13:50 WBC 6.5 RBC 3.17 L Hgb 8.0 L Hct 24.8 L MCV 78.1 L MCH 25.3 L MCHC 32.4 RDW 19.0 H Plt Count 318 MPV 8.0 Absolute Neuts (auto) 4.6 Neutrophils % 70.6 D Lymphocytes % 19.2 D Monocytes % 8.4 Eosinophils % 1.0 Basophils % 0.8 Nucleated RBC % 0 06/13/18 13:50 RBC 3.17 L MCV 78.1 L MCHC 32.4 RDW 19.0 H MPV 8.0 Neutrophils % 70.6 D Lymphocytes % 19.2 D Monocytes % 8.4 Eosinophils % 1.0 Basophils % 0.8 - RADIOLOGY Radiology Studies Ordered: Category Date Time Status CHEST PA & LAT [RAD] Stat Radiology 06/13/18 13:33 Ordered <Sugey Kiser - Last Filed: 06/13/18 16:36> Medical Decision Making - Medical Decision Making 06/13/18 14:45 78 YOF h/o iron deficiency anemia requiring iron transfusion, HLP, HTN and arthritis s/p left hip replacement, presenting with dizziness and palpitations since last night; has h/o anemia of unknown etiology, gets IV iron infusions, last one 1 week ago and awaiting colonoscopy (known h/o bleeding ulcers and polyps in past). See HPI for details Vital signs reviewed, wnl. Prior notes reviewed, including admissions, discharges and consultations. laboratory results and imaging reviewed, basic labs and lytes wnl, notable for acute on chronic anemia, hb 8/ hct 24.8 K hemolyzed to 6.2, will repeat_ no gross blood on rectal exam, guaiac Positive Cardiac panel_neg trop, reassuring, less likely ischemic process or angina. EKG normal sinus rhythm, no interval abnormalities, narrow QRS, ST and T wave segments and morphology normal. Nonspecific T wave abnormalities ED course: transfuse 2 units of pRBC for symptomatic anemia. consented, discussed indication, risks and benefits of blood products as documented pt verbalized understanding and consents to tx. anemia workup ordered and pending admitting to Dr Thompson, discussed plan, management and indication for admission GI cs with Dr Wray as inpatient, order placed in 06/13/18 15:27 06/13/18 16:35 <Sugey Kiser - Last Filed: 06/13/18 16:36> *DC/Admit/Observation/Transfer - Attestations Scribe Attestion: 06/13/18 15:38 Documentation prepared by Zenia Varma, acting as medical lab technician for Sugey Kiser MD, <Zenia Varma - Last Filed: 06/13/18 15:37> - Discharge Dispostion Decision to Admit order: Yes Decision to Admit order Date/Time: 06/13/18 15:26 Decision to Admit Order Category Date Time Status Decision to Admit to Hospital Routine Admission 06/13/18 15:25 Ordered - Attestations Physician Attestion: 06/13/18 14:26 I, Sugey Kiser MD, attest that this document has been prepared under my direction and personally reviewed by me in its entirety. I further attest, that it accurately reflects all work, treatment, procedures and medical decision -making performed by me. <Sugey Kiser - Last Filed: 06/13/18 16:36> Diagnosis at time of Disposition: Light headedness, Symptomatic anemia - Discharge Dispostion Condition at time of disposition: Guarded
[2018-06-13 14:35] LABS: ALBUMIN 3.4 g/dl (3.4-5.0); ALK PHOS 104 U/L (45-117); ANION GAP 6 MMOL/L (8-16); BILIRUBIN,TOTAL 0.6 mg/dL (0.2-1); BLOOD UREA NITROGEN 37 mg/dL (7-18); CALCIUM 8.5 mg/dL (8.5-10.1); CHLORIDE 109 mmol/L (98-107); CO2 24 mmol/L (21-32); CREATININE 1.1 mg/dL (0.55-1.3); GLUCOSE,RANDOM 78 mg/dL (74-106); SGOT/AST 63 U/L (15-37); SGPT/ALT 22 U/L (13-61); SODIUM 138 mmol/L (136-145); TOT PROT 6.9 g/dl (6.4-8.2)
[2018-06-13 14:36] LABS: POTASSIUM 6.2 mmol/L (3.5-5.1)
[2018-06-13 15:30] LABS: INR 0.97 (0.83-1.09); PROTHROMBIN TIME (PATIENT) 11.4 SEC (9.7-13.0)
[2018-06-13 15:37] LABS: ANION GAP 5 MMOL/L (8-16); BLOOD UREA NITROGEN 34 mg/dL (7-18); CALCIUM 8.6 mg/dL (8.5-10.1); CHLORIDE 108 mmol/L (98-107); CO2 27 mmol/L (21-32); CREATININE 1.1 mg/dL (0.55-1.3); GLUCOSE,RANDOM 90 mg/dL (74-106); POTASSIUM 4.4 mmol/L (3.5-5.1); SODIUM 140 mmol/L (136-145)
--- NOTE | 2018-06-13 16:56 | HP ---
Admitting History and Physical - Admission Chief Complaint: 78 y.o F was admitted to [facility] after near syncope episode last night. She was was to have worsened anemia with H/H 8.08/22 History of Present Illness: Parathyroidectomy for adenoma HTN PUD, UGI bleed in the past Hypothyroidism Anemia-received IV Iron sucrose 100 1 wk ago DM 2 Peripheral neuropathy B/L THR MIGUEL/BSO - Past Medical History MANUFACTURING MECHANIC: Yes: Other (Meningitis age 19) Cardiovascular: Yes: HTN, Hyperlipdemia Pulmonary: Yes: Asthma Gastrointestinal: Yes: Diverticulosis, GERD, GI Bleed, Other (colon polyps, hiatal hernia with GERD) Hepatobiliary: Yes: Choledocholithiasis Renal/: Yes: Renal Calculi ([facility] in 2014) Heme/Onc: Yes: Anemia Musculoskeletal: Yes: Osteoarthritis (hip inhections 2014), Other (right hip steroid injection 2014) ENT: Yes: Allergic Rhinitis Endocrine: Yes: Diabetes Mellitus, Hyperparathyroidism, Hyperthyroidism, Hypothyroidism, Other (Thyroid nodule, Parathyroidectomy 07/13) - Past Surgical History Past Surgical History: Yes: Appendectomy, Cholecystectomy, Colonoscopy, Hysterectomy, Oopherectomy, Upper Endoscopy (Parathyroidectomy 07/13) - Smoking History Smoking history: Never smoked Have you smoked in the past 12 months: No Aproximately how many cigarettes per day: 0 If you are a former smoker, when did you quit?: 1979 - Alcohol/Substance Use Hx Alcohol Use: No Number of Drinks Daily: 0 (holidays only) - Social History ADL: Independent Occupation: retired History of Recent Travel: No Home Medications - Allergies Allergies/Adverse Reactions: Allergies Allergy/AdvReac Type Severity Reaction Status Date / Time No Known Drug Allergies Allergy Verified 02/18/18 10:28 - Home Medications Home Medications: Ambulatory Orders Levothyroxine [Synthroid -] 50 mcg PO DAILY 05/16/13 Atorvastatin Ca [Lipitor] 40 mg PO HS #60 tab 09/22/16 Cholecalciferol (Vitamin D3) [Vitamin D-400] 400 unit PO DAILY #60 tab 09/22/16 Gabapentin [Neurontin -] 600 mg PO HS 02/08/18 Apixaban [Eliquis -] 2.5 mg PO BID tablet 02/19/18 Polyethylene Glycol 3350 [Miralax (For Daily Use) -] 17 gm PO DAILY 06/13/18 Family Disease History - Family Disease History Family Disease History: CA: Grandparent (leukemia), Mother (ovarian cancer), Other: Father (lived to 94) Review of Systems - Review of Systems Constitutional: denies: Chills, Diaphoresis, Fever, Lethargy Eyes: denies: Blind Spots, Blurred Vision, Double Vision HENT: denies: Difficult Swallowing, Ear Discharge, Ear Pain Neck: denies: Decreased ROM, Lumps, Pain on Movement Cardiovascular: denies: Chest Pain, Edema, Palpitations Respiratory: denies: Exercise Intolerance, Hemoptysis, Orthopnea, SOB on Exertion, Wheezing Gastrointestinal: denies: Abdominal Pain, Bloating, Constipation Genitourinary: denies: Burning, Discharge, Dysuria Breasts: reports: No Symptoms Reported Musculoskeletal: denies: Back Pain, Crepitus Neurological: reports: Dizziness, Parasthesia, Syncope (near syncope) Endocrine: reports: No Symptoms Hematology/Lymphatic: reports: No Symptoms Psychiatric: reports: No Symptoms Physical Examination Vital Signs: Vital Signs Temperature 98.5 F 06/13/18 13:02 Pulse Rate 88 06/13/18 13:02 Respiratory Rate 16 06/13/18 13:02 Blood Pressure 155/77 06/13/18 13:02 O2 Sat by Pulse Oximetry (%) 100 06/13/18 13:02 Constitutional: Yes: Anxious, Mild Distress, Pallor Eyes: Yes: Conjunctiva Clear, EOM Intact HENT: Yes: Atraumatic, Normocephalic. No: Drooling, Epistaxis, Hoarseness Neck: Yes: Supple, Trachea Midline. No: Decreased ROM, Lymphadenopathy Cardiovascular: Yes: Regular Rate and Rhythm, S1, S2. No: Bradycardia, Tachycardia Respiratory: Yes: Regular, CTA Bilaterally Gastrointestinal: Yes: Normal Bowel Sounds, Soft, Other (hemorrhoids). No: Hepatomegaly, Hernia, Rectal Bleeding ...Rectal Exam: Yes: Deferred Renal/: No: Anuria, Bladder Distention, CVA Tenderness - Left, CVA Tenderness - Right Breast(s): Yes: WNL Musculoskeletal: No: Back Pain, Joint Stiffness Extremities: No: Amputation, Calf Tenderness, Cold, Deformity Edema: Yes Edema: LLE: Trace, RLE: Trace Integumentary: Yes: WNL Neurological: Yes: Alert, Oriented ...Motor Strength: WNL Psychiatric: Yes: WNL Labs: CBC, BMP 06/13/18 13:50 06/13/18 14:45 Imaging - Results Chest X-ray: Image Reviewed Problem List - Problems (1) Light headedness Assessment/Plan: probably related to GI bleed IV fluids Follow VS Code(s): R42 - DIZZINESS AND GIDDINESS (2) Symptomatic anemia Assessment/Plan: Anemia W/u PRBC x1 GI consult EGD PPI Code(s): D64.9 - ANEMIA, UNSPECIFIED (3) HTN (hypertension) Assessment/Plan: Losartan 25 mg QD Code(s): I10 - ESSENTIAL (PRIMARY) HYPERTENSION Qualifiers: Hypertension type: essential hypertension Qualified Code(s): I10 - Essential (primary) hypertension
[2018-06-13 19:59] LABS: RETICULOCYTES 3.56 % (0.5-1.5)
--- NOTE | 2018-06-13 21:57 | CON.GI ---
Consult Consult Specialty:: Gastroenterology Referred by:: Dr. Jhonny Thompson Reason for Consultation:: Severe anemia - History of Present Illness Chief Complaint: Orthostatic dizziness with near syncope History of Present Illness: 78F had a near syncopal spell last night and again today. She has chronic anemia and recently had a Venofer infusion. I saw her in my office on 05/02/18 for worsening anemia. Her stool was guaiac negative but I advised panendoscopy. I weaned her of her PPI onto Ranitidine as she told me that Dr. Tono Martinez felt that her renal failure was possibly related to the PPI. On the Ranitidine her heartburn has flared. Her stools have been brown. She last had an EGD on on 09/01/15 which revealed GERD with ulcerations above a hiatal hernia. Biopsies revealed Huston's esophagus but no dysplasia. Her last colonoscopy was done on 06/30/13 and led to the removal of 4 hyperplastic rectal polyps. Left colon diverticulosis was also noted. - History Source History Provided By: Patient Limitations to Obtaining History: No Limitations - Past Medical History EEG TECHNICIAN: Yes: Other (Meningitis age 19) Cardio/Vascular: Yes: HTN, Hyperlipdemia Pulmonary: Yes: Asthma Gastrointestinal: Yes: Diverticulosis, GERD (above hiatal hernia with Huston's esophagus), GI Bleed, Other (colon polyps) Hepatobiliary: Yes: Choledocholithiasis Renal/: Yes: Renal Inusuff, Renal Calculi ([facility] in 2014) Heme/Onc: Yes: Anemia Musculoskeletal: Yes: Osteoarthritis (hip inhections 2014), Other (right hip steroid injection 2014) ENT: Yes: Allergic Rhinitis Endocrine: Yes: Diabetes Mellitus, Hyperparathyroidism, Hypothyroidism, Other ( Thyroid nodule, Parathyroidectomy 07/13) - Past Surgical History Past Surgical History: Yes: Appendectomy, Cholecystectomy (laparoscopic), Colonoscopy, Hysterectomy (TAHBSO), Joint Replacement (R THR 09/13, L THR 02/14) , Oopherectomy, Upper Endoscopy (Parathyroidectomy 07/13) Additional Surgical History: Bilateral carpal tunnel surgeries. Parathyroidectomy 2015 - Alcohol/Substance Use Hx Alcohol Use: Yes (rare glass of wine) Number of Drinks Daily: 0 (holidays only) - Smoking History Smoking history: Former smoker Have you smoked in the past 12 months: No Aproximately how many cigarettes per day: 0 If you are a former smoker, when did you quit?: 1979 - Social History Usual Living Arrangement: Alone () ADL: Independent Occupation: retired Place of : [facility] History of Recent Travel: No Home Medications - Allergies Allergies/Adverse Reactions: Allergies Allergy/AdvReac Type Severity Reaction Status Date / Time No Known Drug Allergies Allergy Verified 02/18/18 10:28 - Home Medications Home Medications: Ambulatory Orders Levothyroxine [Synthroid -] 50 mcg PO DAILY 05/16/13 Atorvastatin Ca [Lipitor] 40 mg PO HS #60 tab 09/22/16 Cholecalciferol (Vitamin D3) [Vitamin D-400] 400 unit PO DAILY #60 tab 09/22/16 Gabapentin [Neurontin -] 600 mg PO HS 02/08/18 Apixaban [Eliquis -] 2.5 mg PO BID tablet 02/19/18 Polyethylene Glycol 3350 [Miralax (For Daily Use) -] 17 gm PO DAILY 06/13/18 Family Disease History - Family Disease History Family Disease History: CA: Grandparent (leukemia), Mother (ovarian cancer), Other: Father (lived to ) Review of Systems - Review of Systems Constitutional: reports: Lethargy, Malaise, Weakness Eyes: reports: No Symptoms HENT: reports: No Symptoms Neck: reports: No Symptoms Cardiovascular: reports: No Symptoms Respiratory: reports: No Symptoms Gastrointestinal: reports: Indigestion, Other (severe heartburn) Neurological: reports: Dizziness, Weakness Physical Exam-GI Vital Signs: Vital Signs Temperature 98.5 F 06/13/18 21:35 Pulse Rate 67 06/13/18 21:35 Respiratory Rate 06/13/18 21:35 Blood Pressure 126/71 06/13/18 21:35 O2 Sat by Pulse Oximetry (%) 100 06/13/18 21:35 Current Medications Generic Name Dose Route Start Last Admin Trade Name Freq PRN Reason Stop Dose Admin Atorvastatin Calcium 40 mg 06/13/18 22:00 Lipitor - PO HS [facility] Levothyroxine Sodium 50 mcg 06/14/18 07:00 Synthroid - PO DAILY@0700 LUIZ Losartan Potassium 50 mg 06/14/18 10:00 Cozaar - PO DAILY LUIZ Pantoprazole Sodium 40 mg 06/13/18 22:00 Protonix - PO BID LUIZ Polyethylene Glycol 17 gm 06/14/18 10:00 Miralax (For Daily Use) - PO DAILY LUIZ Current Medications Generic Name Dose Route Start Last Admin Trade Name Alejandroq PRN Reason Stop Dose Admin Atorvastatin Calcium 40 mg 06/13/18 22:00 Lipitor - PO HS LUIZ Levothyroxine Sodium 50 mcg 06/14/18 07:00 Synthroid - PO DAILY@0700 LUIZ Losartan Potassium 50 mg 06/14/18 10:00 Cozaar - PO DAILY L[facility] Pantoprazole Sodium 40 mg 06/13/18 22:00 Protonix - PO BID LUIZ Polyethylene Glycol 17 gm 06/14/18 10:00 Miralax (For Daily Use) - PO DAILY LUIZ CBC,CMP WBC 6.5 K/mm3 (4.0-10.0) 06/13/18 13:50 RBC 3.17 M/mm3 (3.60-5.2) L 06/13/18 13:50 Hgb 8.0 GM/dL (10.7-15.3) L 06/13/18 13:50 Hct 24.8 % (32.4-45.2) L 06/13/18 13:50 MCV 78.1 fl (80-96) L 06/13/18 13:50 MCH 25.3 pg (25.7-33.7) L 06/13/18 13:50 MCHC 32.4 g/dl (32.0-36.0) 06/13/18 13:50 RDW 19.0 % (11.6-15.6) H 06/13/18 13:50 Plt Count 318 K/MM3 (134-434) 06/13/18 13:50 MPV 8.0 fl (7.5-11.1) 06/13/18 13:50 Absolute Neuts (auto) 4.6 K/mm3 (1.5-8.0) 06/13/18 13:50 Neutrophils % 70.6 % (42.8-82.8) D 06/13/18 13:50 Lymphocytes % 19.2 % (8-40) D 06/13/18 13:50 Monocytes % 8.4 % (3.8-10.2) 06/13/18 13:50 Eosinophils % 1.0 % (0-4.5) 06/13/18 13:50 Basophils % 0.8 % (0-2.0) 06/13/18 13:50 Nucleated RBC % 0 % (0-0) 06/13/18 13:50 Retic Count 3.56 % (0.5-1.5) H D 06/13/18 13:50 Sodium 140 mmol/L (136-145) 06/13/18 14:45 Potassium 4.4 mmol/L (3.5-5.1) 06/13/18 14:45 Chloride 108 mmol/L (98-107) H 06/13/18 14:45 Carbon Dioxide 27 mmol/L (21-32) 06/13/18 14:45 Anion Gap 5 MMOL/L (8-16) L 06/13/18 14:45 BUN 34 mg/dL (7-18) H 06/13/18 14:45 Creatinine 1.1 mg/dL (0.55-1.3) 06/13/18 14:45 Creat Clearance w eGFR 48.04 (>60) 06/13/18 14:45 Random Glucose 90 mg/dL (74-106) 06/13/18 14:45 Calcium 8.6 mg/dL (8.5-10.1) 06/13/18 14:45 Ferritin 24.1 ng/ml (8-388) 06/13/18 14:45 Total Bilirubin 0.6 mg/dL (0.2-1) 06/13/18 13:50 AST 63 U/L (15-37) H 06/13/18 13:50 ALT 22 U/L (13-61) 06/13/18 13:50 Alkaline Phosphatase 104 U/L (45-117) 06/13/18 13:50 Creatine Kinase 180 U/L (26-192) 06/13/18 13:50 Creatine Kinase Index 0.6 % (0.0-5.0) 06/13/18 13:50 CK-MB (CK-2) 1.1 ng/mL (0.5-3.6) 06/13/18 13:50 Troponin I < 0.02 ng/ml (0.00-0.05) 06/13/18 13:50 Total Protein 6.9 g/dl (6.4-8.2) 06/13/18 13:50 Albumin 3.4 g/dl (3.4-5.0) 06/13/18 13:50 Constitutional: Yes: Anxious, Other (pale) Eyes: Yes: Conjunctiva Clear HENT: Yes: Atraumatic Neck: Yes: Supple Cardiovascular: Yes: Regular Rate and Rhythm Respiratory: Yes: CTA Bilaterally Gastrointestinal Inspection: Yes: Scars (healed lap choly, RLQ & Pfannensteil incisions) ...Auscultate: Yes: Normoactive Bowel Sounds ...Palpate: Yes: Soft, Other (nontender) ...Rectal Exam: Yes: Deferred (at patient's request as Dr. Kiser apparently found occult blood) Edema: No Neurological: Yes: Alert, Oriented Labs: CBC, BMP 06/13/18 13:50 06/13/18 14:45 INR, PTT INR 0.97 (0.83-1.09) 06/13/18 14:53 Laboratory Tests 10/24/12 08/30/15 09/20/16 16:40 19:22 18:20 Hgb 10.5 L 8.1 L D 8.1 L 02/19/18 02/20/18 06/13/18 07:54 07:53 13:50 Hgb 12.0 10.8 8.0 L Laboratory Tests 10/24/12 08/30/15 09/01/15 16:40 19:22 06:00 AST 13 L 17 D 18 ALT 19 24 D 24 Ferritin 7.680 09/22/16 06/13/18 06/13/18 07:36 13:50 14:45 AST 52 H 63 H ALT 29 22 Ferritin 24.1 Problem List - Problems (1) Anemia Assessment/Plan: Angeles's iron deficiency anemia and the occult bleeding found in the ER support GI blood loss. Her symptoms suggest severe GERD. PPI drip will be started and I have advised doing an EGD. I have discussed the EGD in detail including again informing Angeles and her son of the potential for such complications as perforation and hemorrhage. She has granted an informed consent and I have scheduled it for tomorrow. Code(s): D64.9 - ANEMIA, UNSPECIFIED Qualifiers: Anemia type: iron deficiency Iron deficiency anemia type: chronic blood loss Qualified Code(s): D50.0 - Iron deficiency anemia secondary to blood loss (chronic) (2) Huston's esophagus determined by biopsy Assessment/Plan: Unfortunately the Eliquis precludes taking surveillance biopsies tomorrow Code(s): K22.70 - HUSTON'S ESOPHAGUS WITHOUT DYSPLASIA (3) Abnormal liver enzymes Assessment/Plan: I will order a screening for hepatitis etiologies and a sonogram to exclude gallstones and a neoplasm Code(s): R74.8 - ABNORMAL LEVELS OF OTHER SERUM ENZYMES (4) Renal insufficiency Code(s): N28.9 - DISORDER OF KIDNEY AND URETER, UNSPECIFIED (5) Hyperparathyroidism Code(s): E21.3 - HYPERPARATHYROIDISM, UNSPECIFIED (6) Hypothyroidism Code(s): E03.9 - HYPOTHYROIDISM, UNSPECIFIED (7) Diabetes 1.5, managed as type 2 Code(s): E13.9 - OTHER SPECIFIED DIABETES MELLITUS WITHOUT COMPLICATIONS (8) Colon polyp Code(s): K63.5 - POLYP OF COLON (9) Diverticulosis Code(s): K57.90 - DVRTCLOS OF INTEST, PART UNSP, W/O PERF OR ABSCESS W/O BLEED (10) GERD with esophagitis Code(s): K21.0 - GASTRO-ESOPHAGEAL REFLUX DISEASE WITH ESOPHAGITIS (11) GI bleed Code(s): K92.2 - GASTROINTESTINAL HEMORRHAGE, UNSPECIFIED Qualifiers: GI bleed type/associated pathology: unspecified gastrointestinal hemorrhage type Qualified Code(s): K92.2 - Gastrointestinal hemorrhage, unspecified (12) Hiatal hernia Code(s): K44.9 - DIAPHRAGMATIC HERNIA WITHOUT OBSTRUCTION OR GANGRENE (13) Near syncope Code(s): R55 - SYNCOPE AND COLLAPSE Assessment/Plan Worsening anemia is likely due to GI blood loss. Given her GERD symptoms erosive GERD needs to be excluded. She will also need a subsequent outpatient colonoscopy and perhaps capsule endoscopy ultimately Bleeding is likely aggravated by the Eliquis. Not sure why she is taking it. It should be stopped if not contraindicated Elevated liver enzymes need evaluation Plan: PPI drip EGD tomorrow Transfuse tonight Hepatitis evaluation with blood and sonogram Colonoscopy as outatient
[2018-06-13] MEDS ORDERED: PANTOPRAZOLE 40 MG TABLET (FP) PO SCH (22:00)
[2018-06-13] MEDS: ATORVASTATIN CA 40 MG TABLET (FP) PO SCH (22:24)
[2018-06-13] MEDS: PANTOPRAZOLE SODIUM 80 MG in SODIUM CHLORIDE 100 ML IVPB SCH (23:25)
[2018-06-14] MEDS: LEVOTHYROXINE NA 50 MCG TABLET (FP) PO SCH (06:22)
[2018-06-14 08:36] LABS: RETICULOCYTES 2.95 % (0.5-1.5)
[2018-06-14 08:54] LABS: BASO % 0.6 % (0-2.0); EOS % 1.8 % (0-4.5); HEMATOCRIT 31.9 % (32.4-45.2); HEMOGLOBIN 10.8 GM/dL (10.7-15.3); LYMPH % 27.6 % (8-40); MCH 27.5 pg (25.7-33.7); MCHC 33.9 g/dl (32.0-36.0); MEAN CELL VOLUME 81.3 fl (80-96); MEAN PLT VOLUME 7.7 fl (7.5-11.1); MONO % 8.5 % (3.8-10.2); NEUT % 61.5 % (42.8-82.8); PLATELET COUNT 248 K/MM3 (134-434); RBC 3.92 M/mm3 (3.60-5.2); RDW 18.2 % (11.6-15.6); WHITE BLOOD COUNT 5.4 K/mm3 (4.0-10.0)
[2018-06-14] MEDS ORDERED: PT OWN MED DRAWER 7, Y5N ONE (09:17)
[2018-06-14] MEDS: POLYETHYLENE GLYCOL 3350 119 GM BTL PO SCH (09:37)
[2018-06-14] MEDS: LOSARTAN POTASSIUM 50 MG TABLET (FP) PO SCH (09:38)
[2018-06-14] MEDS: PANTOPRAZOLE SODIUM 80 MG in SODIUM CHLORIDE 100 ML IVPB SCH (09:38)
--- NOTE | 2018-06-14 09:45 | PN ---
Progress Note, Physician Chief Complaint: Still c/o dizziness. HCT now 32 Dr Wray consult read and appreciated. Of note pt denies taking Eliquis recently. US abdomen -P EGD-P Stool guaiac positive. Intake & Output 06/13/18 06/13/18 06/14/18 11:59 23:59 11:59 Intake Total 1060 Balance 1060 Weight 187 lb 185 lb 6 oz Intake: IVPB 100 Oral 240 Packed Cells 720 Other: Voiding Method Toilet # Unmeasured Voids Void 1 2 Height 5 ft 1 in Body Mass Index (BMI) 35.3 Weight Measurement Method Built in Bedscale Built in [facility] Weight Measurement Method Est/Stated by Patient Crossmatch 06/13/18 06/13/18 06/13/18 14:45 14:53 14:53 WBC RBC Hgb Hct MCV MCH MCHC RDW Plt Count MPV Absolute Neuts (auto) Neutrophils % Lymphocytes % Monocytes % Eosinophils % Basophils % Nucleated RBC % Retic Count PT with INR 11.40 INR 0.97 Sodium 140 Potassium 4.4 Chloride 108 H Carbon Dioxide 27 Anion Gap 5 L BUN 34 H Creatinine 1.1 Creat Clearance w eGFR 48.04 POC Glucometer Random Glucose 90 Hemoglobin A1c % Calcium 8.6 Ferritin 24.1 Total Bilirubin AST ALT Alkaline Phosphatase Creatine Kinase Creatine Kinase Index CK-MB (CK-2) Troponin I Total Protein Albumin Stool Occult Blood Blood Type A POSITIVE Antibody Screen Negative Crossmatch See Detail 06/14/18 06/14/18 06/14/18 06:20 08:00 08:00 WBC 5.4 RBC 3.92 Hgb 10.8 Hct 31.9 L D MCV 81.3 MCH 27.5 MCHC 33.9 RDW 18.2 H Plt Count 248 D MPV 7.7 Absolute Neuts (auto) 3.3 Neutrophils % 61.5 Lymphocytes % 27.6 D Monocytes % 8.5 Eosinophils % 1.8 Basophils % 0.6 Nucleated RBC % 0 Retic Count PT with INR INR Sodium Potassium Chloride Carbon Dioxide Anion Gap BUN Creatinine Creat Clearance w eGFR POC Glucometer 99 Random Glucose Hemoglobin A1c % 5.8 Calcium Ferritin Total Bilirubin AST ALT Alkaline Phosphatase Creatine Kinase Creatine Kinase Index CK-MB (CK-2) Troponin I Total Protein Albumin Stool Occult Blood Blood Type Antibody Screen Crossmatch 06/14/18 08:00 WBC RBC Hgb Hct MCV MCH MCHC RDW Plt Count MPV Absolute Neuts (auto) Neutrophils % Lymphocytes % Monocytes % Eosinophils % Basophils % Nucleated RBC % Retic Count 2.95 H D PT with INR INR Sodium Potassium Chloride Carbon Dioxide Anion Gap BUN Creatinine Creat Clearance w eGFR POC Glucometer Random Glucose Hemoglobin A1c % Calcium Ferritin Total Bilirubin AST ALT Alkaline Phosphatase Creatine Kinase Creatine Kinase Index CK-MB (CK-2) Troponin I Total Protein Albumin Stool Occult Blood Blood Type Antibody Screen Crossmatch Current Active Problems Problem Status Onset Abnormal liver enzymes Acute Johnson's esophagus determined by biopsy Acute Diabetes 1.5, managed as type 2 Acute HTN (hypertension) Acute Hyperparathyroidism Acute Hypothyroidism Acute Light headedness Acute Near syncope Acute Renal insufficiency Acute Symptomatic anemia GI bleed Acute - Current Medication List Current Medications: Active Medications Atorvastatin Calcium (Lipitor -) 40 mg PO HS [facility] Last Admin: 06/13/18 22:24 Dose: 40 mg Pantoprazole Sodium 80 mg/ (Sodium Chloride) 100 mls @ 10 mls/hr IVPB Q10H [facility] Last Admin: 06/13/18 23:25 Dose: 10 mls/hr Levothyroxine Sodium (Synthroid -) 50 mcg PO DAILY@0700 [facility] Last Admin: 06/14/18 06:22 Dose: 50 mcg Losartan Potassium (Cozaar -) 50 mg PO DAILY [facility] Polyethylene Glycol (Miralax (For Daily Use) -) 17 gm PO DAILY [facility] - Objective Vital Signs: Vital Signs Temperature 98.2 F 06/14/18 05:30 Pulse Rate 75 06/14/18 05:30 Respiratory Rate 20 06/14/18 05:30 Blood Pressure 119/81 06/14/18 05:30 O2 Sat by Pulse Oximetry (%) 98 06/13/18 23:13 Constitutional: Yes: No Distress, Anxious Eyes: Yes: Conjunctiva Clear, EOM Intact HENT: Yes: Atraumatic, Normocephalic Neck: Yes: Supple, Trachea Midline Cardiovascular: Yes: Regular Rate and Rhythm, S1, S2. No: Bradycardia, Tachycardia, JVD Respiratory: Yes: Regular, CTA Bilaterally Gastrointestinal: Yes: Normal Bowel Sounds, Soft. No: Abdomen, Obese ...Rectal Exam: Yes: Deferred Genitourinary: No: Anuria, Bladder Distention Breast(s): Yes: WNL Extremities: Yes: WNL Edema: No Peripheral Pulses WNL: Yes Integumentary: Yes: WNL Neurological: Yes: WNL, Alert, Oriented ...Motor Strength: WNL Psychiatric: Yes: WNL Labs: CBC, BMP 06/14/18 08:00 INR, PTT INR 0.97 (0.83-1.09) 06/13/18 14:53 Laboratory Results - last 24 hr 06/13/18 06/13/18 06/13/18 13:50 13:50 14:45 WBC 6.5 RBC 3.17 L Hgb 8.0 L Hct 24.8 L MCV 78.1 L MCH 25.3 L MCHC 32.4 RDW 19.0 H Plt Count 318 MPV 8.0 Absolute Neuts (auto) 4.6 Neutrophils % 70.6 D Lymphocytes % 19.2 D Monocytes % 8.4 Eosinophils % 1.0 Basophils % 0.8 Nucleated RBC % 0 Retic Count 3.56 H D PT with INR INR Sodium 138 Potassium 6.2 H* Chloride 109 H Carbon Dioxide 24 Anion Gap 6 L BUN 37 H Creatinine 1.1 Creat Clearance w eGFR 48.04 POC Glucometer Random Glucose 78 Hemoglobin A1c % Calcium 8.5 Ferritin Total Bilirubin 0.6 AST 63 H ALT 22 Alkaline Phosphatase 104 Creatine Kinase 180 Creatine Kinase Index 0.6 CK-MB (CK-2) 1.1 Troponin I < 0.02 Total Protein 6.9 Albumin 3.4 Stool Occult Blood Positive Blood Type Antibody Screen Crossmatch 06/13/18 06/13/18 06/13/18 14:45 14:53 14:53 WBC RBC Hgb Hct MCV MCH MCHC RDW Plt Count MPV Absolute Neuts (auto) Neutrophils % Lymphocytes % Monocytes % Eosinophils % Basophils % Nucleated RBC % Retic Count PT with INR 11.40 INR 0.97 Sodium 140 Potassium 4.4 Chloride 108 H Carbon Dioxide 27 Anion Gap 5 L BUN 34 H Creatinine 1.1 Creat Clearance w eGFR 48.04 POC Glucometer Random Glucose 90 Hemoglobin A1c % Calcium 8.6 Ferritin 24.1 Total Bilirubin AST ALT Alkaline Phosphatase Creatine Kinase Creatine Kinase Index CK-MB (CK-2) Troponin I Total Protein Albumin Stool Occult Blood Blood Type A POSITIVE Antibody Screen Negative Crossmatch See Detail 06/14/18 06/14/18 06/14/18 06:20 08:00 08:00 WBC 5.4 RBC 3.92 Hgb 10.8 Hct 31.9 L D MCV 81.3 MCH 27.5 MCHC 33.9 RDW 18.2 H Plt Count 248 D MPV 7.7 Absolute Neuts (auto) 3.3 Neutrophils % 61.5 Lymphocytes % 27.6 D Monocytes % 8.5 Eosinophils % 1.8 Basophils % 0.6 Nucleated RBC % 0 Retic Count PT with INR INR Sodium Potassium Chloride Carbon Dioxide Anion Gap BUN Creatinine Creat Clearance w eGFR POC Glucometer 99 Random Glucose Hemoglobin A1c % 5.8 Calcium Ferritin Total Bilirubin AST ALT Alkaline Phosphatase Creatine Kinase Creatine Kinase Index CK-MB (CK-2) Troponin I Total Protein Albumin Stool Occult Blood Blood Type Antibody Screen Crossmatch 06/14/18 08:00 WBC RBC Hgb Hct MCV MCH MCHC RDW Plt Count MPV Absolute Neuts (auto) Neutrophils % Lymphocytes % Monocytes % Eosinophils % Basophils % Nucleated RBC % Retic Count 2.95 H D PT with INR INR Sodium Potassium Chloride Carbon Dioxide Anion Gap BUN Creatinine Creat Clearance w eGFR POC Glucometer Random Glucose Hemoglobin A1c % Calcium Ferritin Total Bilirubin AST ALT Alkaline Phosphatase Creatine Kinase Creatine Kinase Index CK-MB (CK-2) Troponin I Total Protein Albumin Stool Occult Blood Blood Type Antibody Screen Crossmatch Problem List - Problems (1) Light headedness Assessment/Plan: probably related to GI bleed IV fluids Follow VS Code(s): R42 - DIZZINESS AND GIDDINESS (2) Symptomatic anemia Assessment/Plan: Anemia W/u PRBC x1 GI consult EGD PPI Code(s): D64.9 - ANEMIA, UNSPECIFIED (3) HTN (hypertension) Assessment/Plan: Losartan 25 mg QD Code(s): I10 - ESSENTIAL (PRIMARY) HYPERTENSION Qualifiers: Hypertension type: essential hypertension Qualified Code(s): I10 - Essential (primary) hypertension (4) GI bleeding Code(s): K92.2 - GASTROINTESTINAL HEMORRHAGE, UNSPECIFIED (5) GI bleed Assessment/Plan: EGD today -pending CBC, CMP in AM If stable can be d/c home tomorrow on oral PPI F/u as outpt Code(s): K92.2 - GASTROINTESTINAL HEMORRHAGE, UNSPECIFIED Qualifiers: GI bleed type/associated pathology: unspecified gastrointestinal hemorrhage type Qualified Code(s): K92.2 - Gastrointestinal hemorrhage, unspecified
--- NOTE | 2018-06-14 09:52 | DS ---
Physical Examination Vital Signs: Vital Signs Temperature 98.2 F 06/14/18 05:30 Pulse Rate 75 06/14/18 05:30 Respiratory Rate 20 06/14/18 05:30 Blood Pressure 119/81 06/14/18 05:30 O2 Sat by Pulse Oximetry (%) 98 06/13/18 23:13 Constitutional: Yes: No Distress, Anxious Eyes: Yes: Conjunctiva Clear, EOM Intact HENT: Yes: Atraumatic, Normocephalic Neck: Yes: Supple, Trachea Midline Cardiovascular: Yes: Regular Rate and Rhythm Respiratory: Yes: Regular, Diminished Gastrointestinal: Yes: Normal Bowel Sounds, Soft, Abdomen, Obese ...Rectal Exam: Yes: Deferred Renal/: No: Anuria, Bladder Distention, CVA Tenderness - Left, CVA Tenderness - Right Breast(s): Yes: WNL Extremities: Yes: WNL Edema: No Peripheral Pulses WNL: Yes Integumentary: Yes: WNL Neurological: Yes: WNL ...Motor Strength: WNL Psychiatric: Yes: WNL Labs: CBC, BMP 06/14/18 08:00 Discharge Summary Reason For Visit: ANEMIA, GI bleed Current Active Problems Abnormal liver enzymes (Acute) Johnson's esophagus determined by biopsy (Acute) Diabetes 1.5, managed as type 2 (Acute) GI bleeding (Acute) HTN (hypertension) (Acute) Hyperparathyroidism (Acute) Hypothyroidism (Acute) Light headedness (Acute) Near syncope (Acute) Renal insufficiency (Acute) Symptomatic anemia (Acute) Condition: Improved - Instructions Disposition: HOME - Home Medications Comprehensive Discharge Medication List: Ambulatory Orders Levothyroxine [Synthroid -] 50 mcg PO DAILY 05/16/13 Atorvastatin Ca [Lipitor] 40 mg PO HS #60 tab 09/22/16 Cholecalciferol (Vitamin D3) [Vitamin D-400] 400 unit PO DAILY #60 tab 09/22/16 Polyethylene Glycol 3350 [Miralax 119 gm Btl -] 17 gm PO DAILY 06/13/18 Losartan Potassium [Cozaar -] 50 mg PO DAILY tablet 06/14/18 Pantoprazole Sodium [Protonix -] 40 mg PO BID #120 tablet.ec 06/14/18
[2018-06-14 10:56] LABS: ALBUMIN 3.2 g/dl (3.4-5.0); ALK PHOS 101 U/L (45-117); ANION GAP 6 MMOL/L (8-16); BILIRUBIN,TOTAL 4.4 mg/dL (0.2-1); BLOOD UREA NITROGEN 26 mg/dL (7-18); CALCIUM 8.8 mg/dL (8.5-10.1); CHLORIDE 111 mmol/L (98-107); CHOLESTEROL 142 mg/dL (50-200); CO2 25 mmol/L (21-32); CREATININE 1.1 mg/dL (0.55-1.3); GLUCOSE,RANDOM 95 mg/dL (74-106); HDL CHOLESTEROL 46 mg/dL (40-60); LDH 187 U/L (84-246); MAGNESIUM 2.3 mg/dL (1.8-2.4); PHOSPHOROUS 3.5 mg/dL (2.5-4.9); POTASSIUM 4.1 mmol/L (3.5-5.1); SGOT/AST 17 U/L (15-37); SGPT/ALT 19 U/L (13-61); SODIUM 142 mmol/L (136-145); TOT PROT 6.1 g/dl (6.4-8.2); TRIGLYCERIDES 166 mg/dL (0-150)
--- NOTE | 2018-06-14 12:56 | EKG ---
Test Reason : Blood Pressure : / mmHG Vent. Rate : 084 BPM Atrial Rate : 084 BPM P-R Int : 176 ms QRS Dur : 082 ms QT Int : 358 ms P-R-T Axes : 075 025 017 degrees QTc Int : 423 ms NORMAL SINUS RHYTHM WITH SINUS ARRHYTHMIA NORMAL ECG WHEN COMPARED WITH ECG OF 31-AUG-2015 18:37, NO SIGNIFICANT CHANGE WAS FOUND Confirmed by SONJA SOOD MD ([id number]) on 06/14/2018 12:56:00 PM Referred By: Confirmed By:SONJA SOOD MD
--- NOTE | 2018-06-14 15:17 | PN ---
Progress Note (short form) - Note Progress Note: GI Procedure NOte: Please see EGD report. Severe reflux esophagitis with ulcerations above a hiatal hernia were found as well as a coincidendal small gastric fundus polyp. No biopsies were taken as the patient is on Xarelto. When this can be stopped EGD will be repeated. PPI should be continued. Problem List - Problems (1) Anemia Code(s): D64.9 - ANEMIA, UNSPECIFIED Qualifiers: Anemia type: iron deficiency Iron deficiency anemia type: chronic blood loss Qualified Code(s): D50.0 - Iron deficiency anemia secondary to blood loss (chronic) (2) Huston's esophagus determined by biopsy Code(s): K22.70 - HUSTON'S ESOPHAGUS WITHOUT DYSPLASIA (3) Abnormal liver enzymes Code(s): R74.8 - ABNORMAL LEVELS OF OTHER SERUM ENZYMES (4) Renal insufficiency Code(s): N28.9 - DISORDER OF KIDNEY AND URETER, UNSPECIFIED (5) Hyperparathyroidism Code(s): E21.3 - HYPERPARATHYROIDISM, UNSPECIFIED (6) Hypothyroidism Code(s): E03.9 - HYPOTHYROIDISM, UNSPECIFIED (7) Diabetes 1.5, managed as type 2 Code(s): E13.9 - OTHER SPECIFIED DIABETES MELLITUS WITHOUT COMPLICATIONS (8) Colon polyp Code(s): K63.5 - POLYP OF COLON (9) Diverticulosis Code(s): K57.90 - DVRTCLOS OF INTEST, PART UNSP, W/O PERF OR ABSCESS W/O BLEED (10) GERD with esophagitis Code(s): K21.0 - GASTRO-ESOPHAGEAL REFLUX DISEASE WITH ESOPHAGITIS (11) GI bleed Code(s): K92.2 - GASTROINTESTINAL HEMORRHAGE, UNSPECIFIED Qualifiers: GI bleed type/associated pathology: unspecified gastrointestinal hemorrhage type Qualified Code(s): K92.2 - Gastrointestinal hemorrhage, unspecified (12) Hiatal hernia Code(s): K44.9 - DIAPHRAGMATIC HERNIA WITHOUT OBSTRUCTION OR GANGRENE (13) Near syncope Code(s): R55 - SYNCOPE AND COLLAPSE
[2018-06-14] MEDS: MAG HYDROX/AL HYDROX/SIMETH 30 ML UNIT-DOSE CUP PO SCH (18:01)
[2018-06-14 18:46] LABS: PROTHROMBIN TIME (PATIENT) 11.8 SEC (9.7-13.0)
[2018-06-14] MEDS: PANTOPRAZOLE 40 MG TABLET (FP) PO SCH (21:21)
[2018-06-14] MEDS: ATORVASTATIN CA 40 MG TABLET (FP) PO SCH (21:21)
[2018-06-15] MEDS: MAG HYDROX/AL HYDROX/SIMETH 30 ML UNIT-DOSE CUP PO SCH ×3 (00:02→12:57)
[2018-06-15 04:15] LABS: SERUM IRON SATURATION 5 % (15-55); TOTAL IRON BINDING CAPACITY 374 ug/dL (250-450); UIBC 357 ug/dL (118-369)
[2018-06-15] MEDS: LEVOTHYROXINE NA 50 MCG TABLET (FP) PO SCH (06:06)
[2018-06-15 08:03] LABS: BASO % 0.7 % (0-2.0); EOS % 2.2 % (0-4.5); HEMATOCRIT 29.6 % (32.4-45.2); HEMOGLOBIN 10.1 GM/dL (10.7-15.3); LYMPH % 33.5 % (8-40); MCH 27.3 pg (25.7-33.7); MEAN CELL VOLUME 80.4 fl (80-96); MEAN PLT VOLUME 7.7 fl (7.5-11.1); MONO % 10.2 % (3.8-10.2); NEUT % 53.4 % (42.8-82.8); PLATELET COUNT 231 K/MM3 (134-434); RBC 3.68 M/mm3 (3.60-5.2); RDW 18.5 % (11.6-15.6); WHITE BLOOD COUNT 5.1 K/mm3 (4.0-10.0)
[2018-06-15 09:18] VITALS: BP 115/72; PULSE 69; TEMP 99.2
[2018-06-15] MEDS: PANTOPRAZOLE 40 MG TABLET (FP) PO SCH (09:21)
[2018-06-15] MEDS: LOSARTAN POTASSIUM 50 MG TABLET (FP) PO SCH (09:21)
[2018-06-15] MEDS: POLYETHYLENE GLYCOL 3350 119 GM BTL PO SCH (09:22)
[2018-06-15 13:12] LABS: HBSAG SCREEN Negative (Negative); HEP A AB, IGM Negative (Negative); HEP B CORE AB, TOT Positive (Negative)
[2018-06-15 21:12] LABS: TRANSGLUTAMINASE IGA < 2 U/mL (0-3); TRANSGLUTAMINASE IGG < 2 U/mL (0-5)
== END 2018-06-15 14:01 | disposition home or self-care (01) | DRG 811 ==
LOC: JER 12:53 → JERBED 15:25 → J6S 22:19
PROVIDERS: ADMIT Internal Medicine; ATTEND Internal Medicine
PROC: 30233N1 Transfusion of Nonautologous Red Blood Cells into Peripheral Vein, Percutaneous Approach (ICD-10-PCS; 2018-06-13)
PROC: 0DJ08ZZ Inspection of Upper Intestinal Tract, Via Natural or Artificial Opening Endoscopic (ICD-10-PCS; principal; 2018-06-14 13:45)
DX: D50.0 Iron deficiency anemia secondary to blood loss (chronic) (principal); K22.11 Ulcer of esophagus with bleeding; R42 Dizziness and giddiness; I10 Essential (primary) hypertension; K21.0 Gastro-esophageal reflux disease with esophagitis; E11.9 Type 2 diabetes mellitus without complications; K44.9 Diaphragmatic hernia without obstruction or gangrene; E03.9 Hypothyroidism, unspecified; R55 Syncope and collapse; R74.8 Abnormal levels of other serum enzymes; E21.3 Hyperparathyroidism, unspecified
CPT/HCPCS: 36415; 36430; 36511; 71046-TC-FY; 76705-TC; 80048; 80053; 80061; 82272; 82550; 82553; 82728; 82962; 83010; 83036; 83516; 83540; 83550; 83615; 83721; 83735; 84100; 84484; 85025; 85027; 85044; 85610; 85651; 86038; 86704; 86706; 86708; 86803; 86850; 86900; 86901; 86922; 87340; 93005; 93010; 99284-25; P9038; P9058

== ENCOUNTER 2018-06-21 07:06 | Day surgery (SDC) | payer BC ==
[2018-06-21 07:57] VITALS: BMI 34.9
[2018-06-21 09:05] VITALS: TEMP 97.2
[2018-06-21 10:13] VITALS: BP 145/76; PULSE 74
--- NOTE | 2018-06-24 13:36 | PATH ---
Surgical Pathology Report Patient Name: PAULETTE TORRES [facility]. Rec. #: [id number] /Age/Gender: 1940 (Age: 78) / F Account: [id number] Location: U-ENDOSCOPY Taken: 06/21/2018 Received: 06/21/2018 Reported: 06/24/2018 Physicians: Anny Wray M.D. Specimen(s) Received A: BX 2ND PORTION DUODENUM AND BULB B: BX ANTRUM C: BX GASTRIC CARDIA D: BX DISTAL ESOPHAGUS E: POLYP SIGMOID F: ASCENDING COLON POLYP Clinical History Anemia, GI bleeding, GERD, gastric polyp Postoperative diagnosis: Gastric cardia polyp, hiatal hernia, GERD, colon polyp, diverticulosis Final Diagnosis A. DUODENUM, SECOND PORTION AND BULB, BIOPSY: DUODENAL MUCOSA WITH SMALL LYMPHOID AGGREGATE. B. STOMACH, ANTRUM, BIOPSY: GASTRIC ANTRAL MUCOSA WITH MILD CHRONIC GASTRITIS. IMMUNOHISTOCHEMICAL STAIN FOR H. PYLORI IS NEGATIVE. C. STOMACH, CARDIA, BIOPSY: GASTRIC MUCOSA WITH MINIMAL CHRONIC INFLAMMATION. IMMUNOHISTOCHEMICAL STAIN FOR H. PYLORI IS NEGATIVE. D. DISTAL ESOPHAGUS, BIOPSY: SQUAMOUS MUCOSA WITH MILD BASAL CELL HYPERPLASIA CONSISTENT WITH MILD REFLUX ESOPHAGITIS. NO COLUMNAR MUCOSA, INTESTINAL METAPLASIA, DYSPLASIA IDENTIFIED. E. SIGMOID COLON, BIOPSY: HYPERPLASTIC POLYP. F. ASCENDING COLON, POLYP, BIOPSY: POLYPOID COLONIC MUCOSA WITH SMALL LYMPHOID AGGREGATE. Electronically Signed Kirsten Hein M.D. Gross Description A. Received in formalin, labeled "biopsy second portion of duodenum and bulb" are 4 vergara, irregular portions of soft tissue ranging from 0.1-0.5 cm. in greatest dimension. The specimens are submitted in toto in one cassette. B. Received in formalin, labeled "biopsy antrum" are 2 vergara, irregular portions of soft tissue measuring 0.3 and 0.4 cm. in greatest dimension. The specimens are submitted in toto in one cassette. C. Received in formalin, labeled "polyp gastric cardia" is a vergara, irregular portion of soft tissue measuring 0.2 cm. in greatest dimension. The specimen is submitted in toto in one cassette. D. Received in formalin, labeled "biopsy distal esophagus" are 2 vergara, irregular portions of soft tissue averaging 0.3 cm. in greatest dimension. The specimens are submitted in toto in one cassette. E. Received in formalin, labeled "polyp sigmoid" are 3 vergara, irregular portions of soft tissue ranging from 0.3-0.4 cm. in greatest dimension. The specimens are submitted in toto in one cassette. F. Received in formalin, labeled "polyp right colon" are 2 vergara, irregular portions of soft tissue measuring 0.2 and 0.4 cm. in greatest dimension. The specimens are submitted in toto in one cassette. 06/21/201806/21/2018
== END 2018-06-21 10:03 | disposition home or self-care (01) ==
LOC: JASU-ENDO 07:06
PROVIDERS: ATTEND Internal Medicine Gastroenterology
PROC: 0DBN8ZX Excision of Sigmoid Colon, Via Natural or Artificial Opening Endoscopic, Diagnostic (ICD-10-PCS; 2018-06-21)
PROC: 0DB38ZX Excision of Lower Esophagus, Via Natural or Artificial Opening Endoscopic, Diagnostic (ICD-10-PCS; 2018-06-21)
PROC: 0DB68ZX Excision of Stomach, Via Natural or Artificial Opening Endoscopic, Diagnostic (ICD-10-PCS; 2018-06-21)
PROC: 0DBK8ZX Excision of Ascending Colon, Via Natural or Artificial Opening Endoscopic, Diagnostic (ICD-10-PCS; principal; 2018-06-21 08:00)
DX: D50.9 Iron deficiency anemia, unspecified (principal); Z86.010 Personal history of colon polyps; D12.2 Benign neoplasm of ascending colon; D12.5 Benign neoplasm of sigmoid colon; K64.8 Other hemorrhoids; K57.30 Diverticulosis of large intestine without perforation or abscess without bleeding; K55.20 Angiodysplasia of colon without hemorrhage; K21.0 Gastro-esophageal reflux disease with esophagitis; K44.9 Diaphragmatic hernia without obstruction or gangrene; K31.7 Polyp of stomach and duodenum; I10 Essential (primary) hypertension; E11.9 Type 2 diabetes mellitus without complications
CPT/HCPCS: 88305-TC; 88342-TC

== ENCOUNTER 2018-06-28 11:10 | Day surgery (SDC) | payer BC ==
[~2018-06-28 11:10] MED LIST changes: -CEFAZOLIN 2 GM in DEXTROSE 5%-WATER - 50 ML IVPB ONE; +HYDROCORTISONE SOD SUCCINATE 100 MG/2 ML VIAL IVPB ONE; +IRON SUCROSE INJECTION 100 MG in SODIUM CHLORIDE 100 ML IVPB ONE; -ROPIVICAINE 0.2%/MORPH PF/KETOROLAC - 51ML DISP.SYRINGE IA ONE; -TRANEXAMIC ACID 1000 MG/10 ML VIAL IVPUSH ONE; +diphenhydrAMINE HCL 25 MG CAPSULE (FP) PO ONE
[2018-06-28 14:22] VITALS: BP 147/61; PULSE 96; TEMP 98.3
== END 2018-06-28 12:30 | disposition home or self-care (01) ==
LOC: JINFUSION 11:10 → J7W 11:17 → JINFUSION 12:30
PROVIDERS: ATTEND Internal Medicine
PROC: 3E033GC Introduction of Other Therapeutic Substance into Peripheral Vein, Percutaneous Approach (ICD-10-PCS; principal; 2018-06-28)
DX: D50.9 Iron deficiency anemia, unspecified (principal)
CPT/HCPCS: 96365; J1756

== ENCOUNTER 2018-07-12 11:06 | Day surgery (SDC) | payer BC ==
[2018-07-12] MEDS ORDERED: IRON SUCROSE INJECTION 100 MG in SODIUM CHLORIDE 100 ML IVPB ONE (11:30)
[2018-07-12 14:03] VITALS: TEMP 98.4
[2018-07-12 14:07] VITALS: BP 120/68; PULSE 76
== END 2018-07-12 12:45 | disposition home or self-care (01) ==
LOC: JINFUSION 11:06 → J7W 11:08 → JINFUSION 12:45
PROVIDERS: ATTEND Internal Medicine
PROC: 3E033GC Introduction of Other Therapeutic Substance into Peripheral Vein, Percutaneous Approach (ICD-10-PCS; principal; 2018-07-12)
DX: D50.9 Iron deficiency anemia, unspecified (principal)
CPT/HCPCS: 96365; J1756

== ENCOUNTER 2021-04-04 20:30 | Emergency (ER) | payer OTHER ==
[2021-04-04 20:45] VITALS: TEMP 97.8; BMI 33.2
[2021-04-04 23:33] LABS: BASO % 0.6 % (0-2.0); EOS % 1.2 % (0-4.5); HEMATOCRIT 34.4 % (32.4-45.2); HEMOGLOBIN 11.7 GM/dL (10.7-15.3); LYMPH % 24.9 % (8-40); MCH 29.9 pg (25.7-33.7); MCHC 34.1 g/dl (32.0-36.0); MEAN CELL VOLUME 87.7 fl (80-96); MEAN PLT VOLUME 9.3 fl (7.5-11.1); MONO % 6.8 % (3.8-10.2); NEUT % 66.5 % (42.8-82.8); PLATELET COUNT 250 10^3/uL (134-434); RBC 3.92 M/mm3 (3.60-5.2); RDW 13.7 % (11.6-15.6); WHITE BLOOD COUNT 6.5 K/mm3 (4.0-10.0)
[2021-04-04] MEDS ORDERED: SODIUM CHLORIDE 0.9% 500 ML INFUS.BAG IV ONE (23:35)
[2021-04-04 23:56] LABS: CHLORIDE 111 mmol/L (98-107); SODIUM 142 mmol/L (136-145)
[2021-04-04 23:59] LABS: ALBUMIN 3.4 g/dl (3.4-5.0); ANION GAP 8 MMOL/L (8-16); BLOOD UREA NITROGEN 40.2 mg/dL (7-18); CO2 24 mmol/L (21-32); GLUCOSE,RANDOM 95 mg/dL (74-106); MAGNESIUM 2.2 mg/dL (1.8-2.4)
[2021-04-05 00:02] LABS: CREATININE 1.4 mg/dL (0.55-1.3); PHOSPHOROUS 3.7 mg/dL (2.5-4.9); SGOT/AST 27 U/L (15-37); SGPT/ALT 23 U/L (13-61)
[2021-04-05 00:03] LABS: BILIRUBIN,TOTAL 0.5 mg/dL (0.2-1); TOT PROT 6.9 g/dl (6.4-8.2)
[2021-04-05 00:05] LABS: ALK PHOS 112 U/L (45-117)
[2021-04-05 00:47] LABS: EPI CELLS 6 /uL (0-25.1); HYALINE CASTS 1 /uL (0-3.1); URINE APPEARANCE CLEAR; URINE BACTERIA 38 /uL (0-1359); URINE BILIRUBIN NEGATIVE (NEGATIVE); URINE COLOR YELLOW; URINE GLUCOSE (UA) NEGATIVE (NEGATIVE); URINE KETONE NEGATIVE (NEGATIVE); URINE LEUK ESTERASE 1+ (NEGATIVE); URINE NITRITE NEGATIVE (NEGATIVE); URINE PROTEIN NEGATIVE (NEGATIVE); URINE RBC 8 /uL (0-23.9); URINE UROBILINOGEN 0.2 mg/dL (0.2-1.0); URINE WBC 45 /uL (0-25.8)
[2021-04-05] MEDS ORDERED: SODIUM CHLORIDE 0.9% 500 ML INFUS.BAG IV ONE (00:52)
[2021-04-05] MEDS ORDERED: SULFAMETHOXAZOLE/TRIMETHOPRIM 800MG/160MG D.S. TABLET PO ONE (00:55)
[2021-04-05] MEDS ORDERED: SULFAMETHOXAZOLE/TRIMETHOPRIM 800MG/160MG D.S. TABLET ONE (01:26)
[2021-04-05 03:40] VITALS: BP 169/90; PULSE 84
== END 2021-04-05 03:41 | disposition home or self-care (01) ==
LOC: JER 20:30
DX: N17.9 Acute kidney failure, unspecified (principal); R42 Dizziness and giddiness
CPT/HCPCS: 36415; 71045-TC-FY; 80053; 81003; 82550; 82553; 83735; 84100; 84484; 85025; 86850; 86900; 86901; 93005; 93010; 99285-25; C9803; U0003; U0005

== ENCOUNTER 2021-06-17 04:37 | Day surgery (SDC) | payer BC, OTHER ==
[2021-06-14 16:08] VITALS: BMI 34.2
[2021-06-17 11:08] VITALS: TEMP 97
[2021-06-17 12:12] VITALS: BP 136/88; PULSE 52
== END 2021-06-17 12:20 | disposition home or self-care (01) ==
LOC: JASU-ENDO 04:37
PROVIDERS: ATTEND Internal Medicine Gastroenterology
PROC: 0DB68ZX Excision of Stomach, Via Natural or Artificial Opening Endoscopic, Diagnostic (ICD-10-PCS; 2021-06-17)
PROC: 0DB48ZX Excision of Esophagogastric Junction, Via Natural or Artificial Opening Endoscopic, Diagnostic (ICD-10-PCS; 2021-06-17)
PROC: 0DB98ZX Excision of Duodenum, Via Natural or Artificial Opening Endoscopic, Diagnostic (ICD-10-PCS; principal; 2021-06-17 11:00)
DX: K29.00 Acute gastritis without bleeding (principal); K44.9 Diaphragmatic hernia without obstruction or gangrene; K29.80 Duodenitis without bleeding; K21.9 Gastro-esophageal reflux disease without esophagitis
CPT/HCPCS: 88305-TC; 88312-TC; 88342-TC

== ENCOUNTER 2023-02-16 04:38 | Day surgery (SDC) | payer OTHER ==
[2023-02-14 17:17] VITALS: BMI 31.6
[~2023-02-16 04:38] MED LIST changes: +ACETAMINOPHEN 500 MG TABLET (FP) PO PRN; -HYDROCORTISONE SOD SUCCINATE 100 MG/2 ML VIAL IVPB ONE; -IRON SUCROSE INJECTION 100 MG in SODIUM CHLORIDE 100 ML IVPB ONE; -diphenhydrAMINE HCL 25 MG CAPSULE (FP) PO ONE
[2023-02-16] MEDS ORDERED: DEXAMETHASONE SOD PHOSPHATE 10 MG/1 ML VIAL ONE (07:24)
[2023-02-16] MEDS ORDERED: LIDOCAINE HCL/PF 1% SDV 5ML VIAL ONE (07:24)
[2023-02-16 08:38] VITALS: RESP 18
[2023-02-16] MEDS ORDERED: ACETAMINOPHEN 500 MG TABLET (FP) PO PRN (09:34)
[2023-02-16] MEDS ORDERED: LIDOCAINE HCL 1%, 10 MG/ML (50 mL VIAL) NR ONE (10:35)
[2023-02-16] MEDS ORDERED: DEXAMETHASONE SOD PHOSPHATE 10 MG/1 ML VIAL IM ONE (10:35)
[2023-02-16 12:00] VITALS: BP 162/80; PULSE 77; TEMP 97.3
== END 2023-02-16 12:17 | disposition home or self-care (01) ==
LOC: JASU-SURG 04:38
PROVIDERS: ATTEND Pain Medicine Pain Medicine
PROC: 3E0R3BZ Introduction of Anesthetic Agent into Spinal Canal, Percutaneous Approach (ICD-10-PCS; 2023-02-16)
PROC: 3E0R33Z Introduction of Anti-inflammatory into Spinal Canal, Percutaneous Approach (ICD-10-PCS; principal; 2023-02-16 10:45)
DX: M48.061 Spinal stenosis, lumbar region without neurogenic claudication (principal); M54.16 Radiculopathy, lumbar region
CPT/HCPCS: 76000-TC-FY; J1100

== ENCOUNTER 2024-04-05 11:02 | Day surgery (SDC) | payer OTHER ==
[2024-04-05] MEDS: IRON SUCROSE INJECTION 200 MG in SODIUM CHLORIDE 100 ML IVPB ONE (11:30)
[2024-04-05 11:49] VITALS: TEMP 98.2
[2024-04-05 12:29] VITALS: BP 129/77; PULSE 70; RESP 18
== END 2024-04-05 12:35 | disposition home or self-care (01) ==
LOC: FINFUSION 11:02 → FM/S 11:03 → FINFUSION 12:35
PROVIDERS: ATTEND Internal Medicine
PROC: 3E033GC Introduction of Other Therapeutic Substance into Peripheral Vein, Percutaneous Approach (ICD-10-PCS; principal; 2024-04-05)
DX: D50.9 Iron deficiency anemia, unspecified (principal)
CPT/HCPCS: 96365; J1756